=== PATIENT | male | born 1950 | race Caucasian/White ===

== ENCOUNTER 2016-05-22 17:29 | Emergency (ER) | payer MEDICARE, OTHER ==
[~2016-05-22] VITALS: Ht 172.7 cm; Wt 74.8 kg
[2016-05-22 18:30] LABS: Basophils # (auto) 0 uL; Basophils % (auto) 0.5 % (0.0-2.0); Eosinophils # (auto) 0.3 uL; Eosinophils % (auto) 3.1 % (0.0-7.0); Hematocrit 45.9 % (41.0-53.0); Lymphocytes # (auto) 2.5 uL; Lymphocytes % (auto) 29.3 % (10.0-50.0); Mean Corpuscular Hemoglobin 29.4 pg (28.0-32.0); Mean Corpuscular Hgb Conc. 32.8 g/dL (32.0-36.0); Mean Corpuscular Volume 89.8 fL (80.0-100.0); Mean Platelet Volume 7.4 fL (7.4-10.4); Monocytes # (auto) 0.7 uL; Monocytes % (auto) 8.5 % (0.0-12.0); Neutrophils # (auto) 4.9 uL; Neutrophils % (auto) 58.6 % (37.0-80.0); Platelet Count (auto) 225 10^3/uL (140-450); Red Cell Distribution Width 12.4 % (11.6-16.0); White Blood Cell 8.4 10^3/uL (4.4-10.8)
[2016-05-22 18:50] LABS: Albumin 3.5 g/dL (3.4-5.0); BUN/Creatinine Ratio 15.9; Calcium 8.2 mg/dL (8.5-10.1); Potassium 3.8 mmol/L (3.5-5.1)
[2016-05-22 18:52] LABS: Bilirubin, Total 0.5 mg/dL (0.2-1.0); Total Protein 7.2 g/dL (6.4-8.2)
[2016-05-22] MEDS ORDERED: PHENYTOIN IV DILANTIN 1,000 MG in SODIUM CHL 0.9% 250 ML IV ONE (19:00)
[2016-05-22] MEDS ORDERED: MANNITOL 20% SOLN 100 gm/500ml 250 ML IV ONE (19:00)
[2016-05-22] MEDS ORDERED: DEXAMETHASONE SOD PHOS 10MG/1ML VIAL INJ IV ONE (19:00)
[2016-05-22] MEDS ORDERED: MANNITOL FTV 25% 12.5 GM/50 ML 0 ML IV ONE (19:36)
[2016-05-22] MEDS ORDERED: PHENYTOIN SODIUM 50 MG/ML 5ML INJ VIAL IV ONE (19:50)
[2016-05-22] MEDS ORDERED: LORazepam 2MG/ML-1ML VIAL IV ONE (21:45)
[2016-05-22 22:56] VITALS: BP 145/58
== END 2016-05-22 20:37 | disposition short-term general hospital (02) ==
LOC: ER 17:36
DX: I63.9 Cerebral infarction, unspecified (principal); G40.909 Epilepsy, unspecified, not intractable, without status epilepticus; E78.5 Hyperlipidemia, unspecified; I10 Essential (primary) hypertension; Z95.1 Presence of aortocoronary bypass graft; Z86.73 Personal history of transient ischemic attack (TIA), and cerebral infarction without residual deficits
CPT/HCPCS: 36415; 70450; 71010; 80053; 83930; 85025; 85049; 93005; 96365; 96366; 96368; 96375; 99285; J1100; J1165; J2060; J7050

== ENCOUNTER 2023-06-25 09:59 | Day surgery (SDC) | payer MEDICARE, OTHER ==
[2023-06-23 10:21] LABS: Basophils # (auto) 0.1 10 ^3/uL (0-0.2); Basophils % (auto) 1.2 % (0.0-2.0); Eosinophils # (auto) 0.3 10 ^3/uL (0-0.8); Eosinophils % (auto) 3.5 % (0.0-7.0); Hematocrit 41.4 % (41.0-53.0); Lymphocytes # (auto) 1.7 10 ^3/uL (0.4-5.4); Lymphocytes % (auto) 18.3 % (10.0-50.0); Mean Corpuscular Hemoglobin 30.4 pg (28.0-32.0); Mean Corpuscular Hgb Conc. 33.7 g/dL (32.0-36.0); Mean Corpuscular Volume 90.1 fL (80.0-100.0); Monocytes # (auto) 0.8 10 ^3/uL (0-1.3); Monocytes % (auto) 8.4 % (0.0-12.0); Neutrophils # (auto) 6.5 10 ^3/uL (1.6-8.6); Neutrophils % (auto) 68.6 % (37.0-80.0); Nucleated Red Blood Cells % 0.1 %; Red Cell Distribution Width 13.1 % (11.8-14.3); White Blood Cell 9.4 10^3/uL (4.4-10.8)
[2023-06-23 10:44] LABS: Urine Bacteria NONE SEEN /hpf (None Seen); Urine Blood Negative /uL (Negative); Urine Clarity Clear (Clear); Urine Color Yellow (Yellow); Urine Protein, UAD Negative (Negative); Urine Specific Gravity 1.025 (1.001-1.035); Urine Urobilinogen Normal (Negative); Urine WBC <1 /hpf (0 - 3)
[2023-06-23 10:47] LABS: INR 0.96 (0.9-1.15); Partial Thromboplastin Time 26.2 SEC (24.5-34.5); Prothrombin Time 10.1 sec (9.3-11.8)
[2023-06-23 11:12] LABS: Alanine Aminotransferase 22 U/L (7-40); Albumin 4.3 g/dL (3.2-4.8); Alkaline Phosphatase 79 U/L (46-116); Anion Gap 5 (5-15); Aspartate Aminotransferase 18 U/L (13-40); BUN/Creatinine Ratio 14.7 (10.0-20.0); Bilirubin, Total 0.6 mg/dL (0.2-1.0); Blood Urea Nitrogen 20 mg/dL (9-23); Calcium 9.3 mg/dL (8.5-10.1); Carbon Dioxide 30 mmol/L (20-30); Chloride 106 mmol/L (98-107); Glucose 85 mg/dL (74-106); Potassium 4.5 mmol/L (3.5-5.1); Sodium 141 mmol/L (136-145); Total Protein 6.7 g/dL (5.7-8.2)
[~2023-06-25] VITALS: Ht 172.7 cm; Wt 68.0 kg
[~2023-06-25 09:59] MED LIST: AMLO1TAB23 PO; ASPI81CH59 PO; ATOR20TA50 PO; CLOP75TA28 PO; CYAN-17 PO; LAMO200T34 PO; LISI20TA56 PO; METO-159 PO; OMEP-434 PO; RANO500T3 PO
[2023-06-25] MEDS ORDERED: PROPOFOL 10 MG/ML 20 ML IV ONE (12:07)
[2023-06-25 12:16] VITALS: TEMP 98; O2SAT 100; O2SAT 99
[2023-06-25 12:52] VITALS: BP 135/81; PULSE 60; RESP 11; O2SAT 97
== END 2023-06-25 13:02 | disposition home or self-care (01) ==
LOC: GI 09:59
PROVIDERS: ATTEND Internal Medicine Gastroenterology
DX: R10.13 Epigastric pain (principal); K29.50 Unspecified chronic gastritis without bleeding; E78.5 Hyperlipidemia, unspecified; I10 Essential (primary) hypertension; R56.9 Unspecified convulsions; Z98.890 Other specified postprocedural states; Z86.73 Personal history of transient ischemic attack (TIA), and cerebral infarction without residual deficits
CPT/HCPCS: 36415; 43239; 80053; 81001; 85025; 85610; 85730; 88305; 88312; 88342; J2704; J7030

== ENCOUNTER 2024-11-23 10:49 | Inpatient (IN) | payer OTHER, MEDICARE ==
[~2024-11-23] VITALS: Ht 172.7 cm; Wt 68.6 kg
--- NOTE | 2024-11-23 11:09 | ECG ---
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
--- NOTE | 2024-11-23 11:10 | ED.PDOC ---
HPI Comments HPI: 74 y/o M, with PMHx of CVA, HTN, HLD, and seizures presents to the ED for CC of dizziness. Patient states, he has been experiencing dizziness with associated symptoms of substernal non-radiating chest onset, today (11/23/24). Patient reports, that he has chronic dizziness d/t medications however, endorses symptoms worsening today (11/23/24). Per patient's ex-, patient took only his morning medications prior to arriving to the ED. Patient denies shortness of breath, cough, headache, nausea, or vomiting. No other associated symptoms or modifying factors present at this time. Past Medical history: CVA, HTN, HLD, SEIZURES, tremors Past Surgical history: LEFT ARTERIAL APPENDAGE watchman procedure, cholecystecto my, pacemaker, CABG Medications: Aspirin, Plavix, metoprolol, Social History: Denies smoking, ETOH, and drug use. Allergies: NKA HPI: Poor Historian. REVIEW OF SYSTEMS: CONSTITUTIONAL: Denies acute: fever, diaphoresis, chills, HEAD: Denies acute: headache, photophobia Eyes: Denies acute: Double vision, vision loss, eye pain, eye discharge. EARS: Denies acute: tinnitus, hearing loss, ear discharge, ear pain, THROAT: Denies acute: sore throat, swelling, difficulty swallowing , pain with swallowing, change in voice. NECK: Denies acute: neck pain, neck swelling, stiff neck. HEART: Denies acute : palpitations, LUNGS: Denies acute: SOB, wheezing, cough, hemoptysis ABDOMEN: Denies acute: abdominal pain, Nausea, Vomiting, diarrhea, melena , hematemesis, hematochezia SKIN: Denies acute: rash, redness, lesions, itchiness. EXTREMITIES: Denies acute: calf pain, numbness, tingling, weakness, denies pain in extremity. Denies acute: Low back pain. Neuro: Denies acute: focal neurological deficit, motor or sensory focal neurological deficit, tremors, seizure like activity, confusion, change in mental status, loss of bowel or bladder function, cauda equina like symptoms. : Denies acute: dysuria, hematuria, flank pain, increase in urinary frequency. PSYCH: Denies acute: hallucination, suicidal ideation, homicidal ideation. PHYSICAL EXAM: General: -----mild---acute distress, awake and alert. Head: normocephalic, atraumatic. Neck: supple, trachea is midline, no swelling. Throat: Normal phonation. Eyes:, no erythema, no purulent discharge, no proptosis, no icterus. Heart: regular rate, regular rhythm, no significant murmur appreciated. Lungs: no apparent respiratory distress, Able to speak in full sentences. No wheezing, no rhonchi, no crackles. No stridors Clear to auscultation bilaterally. Abdomen: non tender to palpation, non distended, soft, no guarding, no rebound, + bowel sounds. Neuro: Awake, Alert, oriented to name, self, situation, follows commands, resting tremors GCS=15. Speech is normal. Skin: no petechia, no purpura, no cyanosis, non-pale, not jaundice. Lower extremities: --no - Pitting edema no deformity, no focal swelling, no calf TTP. Makes eye contact. moves all four extremities. Face: no apparent facial droop. Unsteady gait when he stands up. Stroke: No pronator drift. ED COURSE: DISCLAIMER: This medical document was created using an electronic medical record system with voice recognition software and computerized dictation system. Although this document has been carefully reviewed, there might still be some phonetic and typographical errors. Occasional wrong-word or "sound-alike" substitutions may have occurred due to the inherent limitations of voice recognition software. These areas are purely typographical due to imperfections of the software programs and do not reflect any compromise in the patient's medical care. Please read the chart carefully and recognize, using context, where these substitutions have occurred. Time Seen by MD: 11:04 Primary Care Provider: UNKNOWN Reviewed Notes: Nurses Notes, Medications, Allergies Allergies: Coded Allergies: NO KNOWN ALLERGIES (Unverified , 05/22/16) Home Meds Reported Medications Tramadol HCl (Tramadol HCl) 50 Mg Tab, 50 MG PO DAILY, TAB 11/23/24 Pantoprazole Sodium (PANTOPRAZOLE SODIUM) 40 Mg Inj, 40 MG PO DAILY@BREAKFAST, INJ 11/23/24 Lamotrigine (Lamotrigine) 25 Mg Tab, 400 MG PO BID, TAB 11/23/24 Dronedarone Hydrochloride (Multaq) 400 Mg Tab, 200 MG PO BID 11/23/24 Metoprolol Succinate (Metoprolol Succinate Er) 50 Mg Tab, 1 TAB PO TID 11/23/24 Clonidine Hydrochloride (Clonidine Hcl) 0.1 Mg Tab, 1 TAB PO TID 11/23/24 Cyanocobalamin (B12) 1,000 Mcg Cap, 1000 MCG PO DAILY, CAP 06/23/23 Aspirin (Aspirin Low Dose) 81 Mg Chw, 81 MG PO DAILY, TAB.CHEW 06/23/23 Atorvastatin Calcium (ATORVASTATIN CALCIUM) 20 Mg Tab, 20 MG PO DAILY, TAB 06/23/23 Omeprazole Magnesium (Omeprazole) 20 Mg Tab, 20 MG PO DAILY, TAB 06/23/23 Clopidogrel Bisulfate (Plavix) 75 Mg Tab, 75 MG PO DAILY, TAB 06/23/23 Ranolazine (Ranolazine ER) 500 Mg Tab, 500 MG PO BID, TAB 06/23/23 Amlodipine Besylate (Amlodipine Besylate) 10 Mg Tab, 10 MG PO DAILY, TAB 06/23/23 Discontinued Reported Medications Metoprolol Tartrate (Metoprolol Tartrate) 100 Mg Tab, 100 MG PO BID, TAB 06/23/23 Lamotrigine (Lamotrigine) 200 Mg Tab, 200 MG PO BID, TAB 06/23/23 Lisinopril (Lisinopril) 20 Mg Tab, 20 MG PO BID, TAB 06/23/23 Information Source: Patient, Spouse Mode of Arrival: Wheelchair Severity: Moderate Timing: Days Duration: Since onset Location: Substernal Radiation: No Radiation Onset: At Rest Cardiac Risk Factors: Hyperlipidemia, HTN PE Risk Factors: None History of: None Modifying Factors: Nothing Associated Signs and Symptoms: None EKG EKG : Pulse Rate (adult): 97 Erick: Normal Cardiac Rhythm: Paced Block: None Hypertrophy: None ST: Normal Was a procedure done? Was a procedure done?: No CP Differential Dx Differential Diagnosis: Other (As far as generalized weakness: Anemia, CVA, dehydration, dysrhythmia, electrolyte imbalance, encephalopathy, Guillain-[place], hypoglycemia, hypotension, hypovolemia, labeled with HIDA some many years disease, myasthenia gravis, PA, pulmonary embolus, renal failure, respiratory failure, TIA, VPI, vertigo central, vertigo peripheral, vestibular neuronitis), N/A Differential Diagnosis: HTN Essential, HTN Accelerated Differential Diagnosis: Angina, Chest Wall Pain, Costochondritis, Other (Ddx include but not limitied to gastritis, musculoskeletal pain, radiculopathy, atypical chest pain, dissection, aneurysm, ACS, unstable angina, hiatal hernia, GERD, anxiety, costochondritis, PE, pneumothroax, neoplasm, cardiac ischemia, drug abuse, anemia.) X-Ray, Labs, Meds, VS Vital Signs Date Time Temp Pulse Resp B/P (MAP) Pulse Ox O2 Delivery O2 Flow Rate FiO2 11/23/24 12:57 97.5 55 16 171/97 (121) 96 97.5 11/23/24 11:35 70 20 98 Room Air* 0 21 11/23/24 11:10 97 11/23/24 11:06 97 11/23/24 10:58 97.5 60 18 143/80 (101) 93 97.5 Lab Test 11/23/24 13:02 11/23/24 11:46 11/23/24 11:37 Range/Units Troponin I High Sensitivity 4 4 </=54 ng/L Urine Color Yellow Yellow Urine Clarity Clear Clear Urine pH 6.5 5.0-9.0 Urine Specific [place] 1.021 1.001-1.035 Urine Protein Trace H Negative Urine Ketones Negative Negative Urine Blood Negative Negative /uL Urine Nitrite Negative Negative Urine Bilirubin Negative Negative Urine Urobilinogen Normal Negative mg/dL Urine Leukocyte Esterase Negative Negative /uL Urine RBC 1 0 - 3 /hpf Urine Microscopic WBC 1 0-3 /HPF Urine Squamous Epithelial Cells None seen <5 /hpf Urine Bacteria None seen None Seen /hpf Urine Glucose Normal Normal mg/dL White Blood Count 6.3 4.4-10.8 10^3/uL Red Blood Count 4.70 4.5-5.90 10^6/uL Hemoglobin 13.8 13.5-17.5 g/dL Hematocrit 41.0 41.0-53.0 % Mean Corpuscular Volume 87.3 80.0-100.0 fL Mean Corpuscular Hemoglobin 29.3 28.0-32.0 pg Mean Corpuscular Hemoglobin Concent 33.6 32.0-36.0 g/dL Red Cell Distribution Width 13.7 11.8-14.3 % Platelet Count 222 140-450 10^3/uL Mean Platelet Volume 6.8 L 6.9-10.8 fL Neutrophils (%) (Auto) 71.6 37.0-80.0 % Lymphocytes (%) (Auto) 15.5 10.0-50.0 % Monocytes (%) (Auto) 7.8 0.0-12.0 % Eosinophils (%) (Auto) 4.1 0.0-7.0 % Basophils (%) (Auto) 1.0 0.0-2.0 % Neutrophils # (Auto) 4.5 1.6-8.6 10 ^3/uL Lymphocytes # (Auto) 1.0 0.4-5.4 10 ^3/uL Monocytes # (Auto) 0.5 0-1.3 10 ^3/uL Eosinophils # (Auto) 0.3 0-0.8 10 ^3/uL Basophils # (Auto) 0.1 0-0.2 10 ^3/uL Nucleated Red Blood Cells 0.1 % Sodium Level 139 136-145 mmol/L Potassium Level 4.1 3.5-5.1 mmol/L Chloride Level 106 98-107 mmol/L Carbon Dioxide Level 24 20-31 mmol/L Anion Gap 9 5-15 Blood Urea Nitrogen 20 9-23 mg/dL Creatinine 1.53 H 0.700-1.30 mg/dL Glomerular Filtration Rate Calc 47 >90 mL/min BUN/Creatinine Ratio 13.1 10.0-20.0 Serum Glucose 115 H 74-106 mg/dL Lactic Acid Level 1.2 0.4-2.0 mmol/L Calcium Level 9.5 8.7-10.4 mg/dL Total Bilirubin 0.6 0.2-1.0 mg/dL Aspartate Amino Transferase (AST) 14 13-40 U/L Alanine Aminotransferase (ALT) 10 7-40 U/L Alkaline Phosphatase 91 46-116 U/L B-Type Natriuretic Peptide 433.54 0-100 pg/mL Total Protein 7.0 5.7-8.2 g/dL Albumin 4.5 3.2-4.8 g/dL [facility] [id number] [place] [id number] Ph: [phone] DIAGNOSTIC IMAGING Diagnostic Imaging Report : [id number] Signed PATIENT: ANDREW SAEED ACCT: [id number] UNIT: [id number] : 1950 LOC: ER ROOM / BED: / AGE / SEX: 74 / M ADM STATUS: REG ER SERVICE 1103 ORDERING PHYSICIAN: SARAH BETH HYLTON DO PROCEDURE(s): CXRP - CHEST PORTABLE REASON: cp/dizzy ORDER NUMBER(s): [id number], ACCESSION NUMBER(s): [id number] INDICATION: cp/dizzy TECHNIQUE: Frontal view of the chest. COMPARISON: None FINDINGS: Left pacemaker. The heart and mediastinal contours are grossly unremarkable. There is no evidence of pleural disease. Bibasilar atelectasis. The bony structures of the chest are intact without fracture. IMPRESSION: 1. Bibasilar atelectasis ATED BY: FELIPE BESS MD DICTATED DATE/TIME: 11/23/24 1136 SIGNED BY: FELIPE BESS MD SIGNED DATE/TIME: 11/23/24 1136 CC: Time of 1ST Reevaluation: 11:34 Reevaluation 1ST: Unchanged Patient Education/Counseling: Diagnosis, Treatment Family Education/Counseling: Diagnosis, Treatment Comments MDM: patient presented with the above HPI.---generalized weakness dizziness chest pain---workup was initiated. patient was found with the above mentioned diagnosis. the following medications were ordered: please refer to order lists of meds and tests obtained by myself Dr. Hylton. Patient ED course and VS have been stabilized. Patient has been reassessed in the ED and remained in a stable condition. Pertinent incidental findings were discussed with the patient and/or family. Patient/family voices understanding and is agreeable with plan. Patient has been observed in the ED adequate length of time to insure improvement/stability. Escalation of care considered: Consideration of escalation to observation or admission Patient was ADMITTED to the medicine team for further evaluation and treatment of their presentation. All the reports of any imaging studies that were ordered by myself were reviewed by myself. Departure 1 Departure Time of Disposition: 11:09 Impression: Primary Impression: Chest pain Additional Impressions: Unsteady gait Dizziness Disposition: 09 ADMITTED INPATIENT Admit to: Tele Condition: Guarded Discharged With: Self Critical Care Note Critical Care Time?: Yes (45 min-critical care time only) Heart Score Heart Score: Heart Score Response (Comments) Value History Moderate Suspicious 1 EKG N/A 0 Age >65 2 Risk Factors 1 or 2 risk factors 1 Troponin Normal limit 0 Total 4 I personally scribed for SARAH BETH HYLTON DO (DVFARMI) on 11/23/24 at 11:10. Electronically submitted by Thelma Greenfiedl ([email or web address]). I personally scribed for SARAH BETH HYLTON DO (DVFARMI) on 11/23/24 at 11:16. Electronically submitted by Thelma Greenfield ([email or web address]). I personally scribed for SARAH BETH HYLTON DO (DVFARMI) on 11/23/24 at 11:59. Electronically submitted by Thelma Greenfield ([email or web address]). I personally scribed for SARAH BETH HYLTON DO (DVFARMI) on 11/23/24 at 12:00. Electronically submitted by Thelma Greenfield ([email or web address]). SARAH BETH HYLTON DO Nov 23, 2024 11:10
[2024-11-23] MEDS: SODIUM CHLORIDE 0.9% 1,000 ML IV ONE (11:24)
[2024-11-23 11:35] VITALS: PULSE 70; RESP 20; O2SAT 98
--- NOTE | 2024-11-23 11:38 | DVH ---
INDICATION: cp/dizzy TECHNIQUE: Frontal view of the chest. COMPARISON: None FINDINGS: Left pacemaker. The heart and mediastinal contours are grossly unremarkable. There is no evidence of pleural disease. Bibasilar atelectasis. The bony structures of the chest are intact without fract ure. IMPRESSION: 1. Bibasilar atelectasis
[2024-11-23 12:09] LABS: Hematocrit 41.0 % (41.0-53.0); Hemoglobin 13.8 g/dL (13.5-17.5); Mean Corpuscular Hemoglobin 29.3 pg (28.0-32.0); Mean Corpuscular Volume 87.3 fL (80.0-100.0); Nucleated Red Blood Cells % 0.1 %
[2024-11-23 12:18] LABS: Alanine Aminotransferase 10 U/L (7-40); Albumin 4.5 g/dL (3.2-4.8); Alkaline Phosphatase 91 U/L (46-116); Anion Gap 9 (5-15); BUN/Creatinine Ratio 13.1 (10.0-20.0); Blood Urea Nitrogen 20 mg/dL (9-23); Calcium 9.5 mg/dL (8.7-10.4); Carbon Dioxide 24 mmol/L (20-31); Chloride 106 mmol/L (98-107); Potassium 4.1 mmol/L (3.5-5.1); Sodium 139 mmol/L (136-145); Total Protein 7.0 g/dL (5.7-8.2)
[2024-11-23 12:19] LABS: Bilirubin, Total 0.6 mg/dL (0.2-1.0); Glucose 115 mg/dL (74-106)
[2024-11-23 12:38] LABS: Urine Protein, UAD TRACE (Negative)
[2024-11-23] MEDS ORDERED: CLON0.1T PO (15:06)
[2024-11-23] MEDS ORDERED: ACETAMINOPHEN 325 MG TAB PO PRN (15:15)
[2024-11-23] MEDS ORDERED: DOCUSATE SOD 100 MG CAP PO PRN (15:15)
--- NOTE | 2024-11-23 15:37 | DVHHP2 ---
History of Present Illness Reason for Visit: Dizziness History of Present Illness Benito Engle is a 74-year-old male with past medical history of CVA, hypertension, hyperlipidemia, and seizures, who came to the hospital for dizziness and shaking. Patient states he usually has dizziness and tremors due to his medications, but it worsened prompting him to come to the hospital. He also complains of intermittent chest pain. Patient lives alone, is forgetful and a poor historian. Dis ex- helps him with getting to his doctor appointments and with his medications. She states he does have periods of dizziness and tremors. Thursday his dizziness was bad, then Thursday he was fine. Today he was not feeling well and she was taking him to his primary care provider for a check up when he told her he felt too bad and to take him to the hospital. 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 Past Surgical History: Cholecystectomy, CABG Smoke: No ALCOHOL: none Drugs: None Lives: Alone Domestic Violence: Neg Review of Systems Constitutional: No: Fever, Chills, Sweats, Weakness, Malaise, Other Eyes: No: Pain, Vision change, Conjunctivae inflammation, Eyelid inflammation, Other, Redness ENT: No: Ear pain, Ear discharge, Nose pain, Nose discharge, Nose congestion, Mouth pain, Mouth swelling, Throat pain, Throat swelling, Other Respiratory: No: Cough, Dry, Shortness of breath, SOB with excertion, Wheezing, Hemoptysis, Pleuritic Pain, Sputum, Wheezing, Other Cardiovascular: No: Chest Pain, Palpitations, Orthopnea, Paroxysmal Noc. Dyspnea, Edema, Lt Headedness, Other Gastrointestinal: No: Nausea, Vomiting, Abdominal Pain, Diarrhea, Constipation, Melena, Hematochezia, Other Genitourinary: No Dysuria, No Frequency, No Incontinence, No Hematuria, No Retention, No Other Musculoskeletal: No: other, neck pain, shoulder pain, arm pain, back pain, hand pain, leg pain, foot pain Skin: No: Rash, Lesions, Jaundice, Bruising, Other Neurological: Weakness, Numbness, Incoordination; No: Change in speech, Confusion, Seizures, Other Allergies: Coded Allergies: NO KNOWN ALLERGIES (Unverified , 05/22/16) Medications Current Medications Medications Dose Ordered Sig/Iris Route Start Time Stop Time Status Last Admin Dose Admin Acetaminophen/ Hydrocodone Bitart 1 tab Q4HP PRN PO 11/23/24 15:15 UNV Ondansetron HCl 4 mg Q4HP PRN IV 11/23/24 15:15 UNV Docusate Sodium 100 mg BIDPRN PRN PO 11/23/24 15:15 UNV Acetaminophen 650 mg Q6HP PRN PO 11/23/24 15:15 UNV Atorvastatin Calcium 20 mg DAILY PO 11/24/24 10:00 UNV Clopidogrel Bisulfate 75 mg DAILY PO 11/24/24 10:00 UNV Ranolazine 500 mg BID PO 11/23/24 22:00 UNV Patient Own Medication 81 mg DAILY PO 11/24/24 10:00 UNV Patient Own Medication 200 mg BID PO 11/23/24 22:00 UNV Patient Own Medication 100 mg BID PO 11/23/24 22:00 UNV Patient Own Medication 20 mg DAILY PO 11/24/24 10:00 UNV Clonidine HCl 0.1 mg TID PO 11/23/24 22:00 UNV Exam Vital Signs Vital Signs Date Time Temp Pulse Resp B/P (MAP) Pulse Ox O2 Delivery O2 Flow Rate FiO2 11/23/24 12:57 97.5 55 16 171/97 (121) 96 97.5 11/23/24 11:35 Room Air* 0 21 General Appearance: Alert, Cooperative, Other (Oriented x 2) HEENT: Atraumatic, PERRLA, Mucous membr. moist/pink Respiratory: Clear to auscultation, Normal air movement Cardiovascular: Regular rate, Normal S1, Normal S2, No murmurs, Other (hyp ertensive) Abdominal: Normal bowel sounds, Soft, No tenderness, No hepatospenomegaly Extremities: No clubbing, No cyanosis, No edema, Normal pulses, No tenderness/swelling Skin: No rashes, No breakdown Neuro: Normal speech, Other (unsteady gait, shuffles) Psych/Mental Status: Other (forgetful) Labs/Xrays Labs Test 11/23/24 13:02 11/23/24 11:46 11/23/24 11:37 Range/Units Troponin I High Sensitivity 4 </=54 ng/L Urine Color Yellow Yellow Urine Clarity Clear Clear Urine pH 6.5 5.0-9.0 Urine Specific [place] 1.021 1.001-1.035 Urine Protein Trace H Negative Urine Ketones Negative Negative Urine Blood Negative Negative /uL Urine Nitrite Negative Negative Urine Bilirubin Negative Negative Urine Urobilinogen Normal Negative mg/dL Urine Leukocyte Esterase Negative Negative /uL Urine RBC 1 0 - 3 /hpf Urine Microscopic WBC 1 0-3 /HPF Urine Squamous Epithelial Cells None seen <5 /hpf Urine Bacteria None seen None Seen /hpf Urine Glucose Normal Normal mg/dL White Blood Count 6.3 4.4-10.8 10^3/uL Red Blood Count 4.70 4.5-5.90 10^6/uL Hemoglobin 13.8 13.5-17.5 g/dL Hematocrit 41.0 41.0-53.0 % Mean Corpuscular Volume 87.3 80.0-100.0 fL Mean Corpuscular Hemoglobin 29.3 28.0-32.0 pg Mean Corpuscular Hemoglobin Concent 33.6 32.0-36.0 g/dL Red Cell Distribution Width 13.7 11.8-14.3 % Platelet Count 222 140-450 10^3/uL Mean Platelet Volume 6.8 L 6.9-10.8 fL Neutrophils (%) (Auto) 71.6 37.0-80.0 % Lymphocytes (%) (Auto) 15.5 10.0-50.0 % Monocytes (%) (Auto) 7.8 0.0-12.0 % Eosinophils (%) (Auto) 4.1 0.0-7.0 % Basophils (%) (Auto) 1.0 0.0-2.0 % Neutrophils # (Auto) 4.5 1.6-8.6 10 ^3/uL Lymphocytes # (Auto) 1.0 0.4-5.4 10 ^3/uL Monocytes # (Auto) 0.5 0-1.3 10 ^3/uL Eosinophils # (Auto) 0.3 0-0.8 10 ^3/uL Basophils # (Auto) 0.1 0-0.2 10 ^3/uL Nucleated Red Blood Cells 0.1 % Sodium Level 139 136-145 mmol/L Potassium Level 4.1 3.5-5.1 mmol/L Chloride Level 106 98-107 mmol/L Carbon Dioxide Level 24 20-31 mmol/L Anion Gap 9 5-15 Blood Urea Nitrogen 20 9-23 mg/dL Creatinine 1.53 H 0.700-1.30 mg/dL Glomerular Filtration Rate Calc 47 >90 mL/min BUN/Creatinine Ratio 13.1 10.0-20.0 Serum Glucose 115 H 74-106 mg/dL Lactic Acid Level 1.2 0.4-2.0 mmol/L Calcium Level 9.5 8.7-10.4 mg/dL Total Bilirubin 0.6 0.2-1.0 mg/dL Aspartate Amino Transferase (AST) 14 13-40 U/L Alanine Aminotransferase (ALT) 10 7-40 U/L Alkaline Phosphatase 91 46-116 U/L B-Type Natriuretic Peptide 433.54 0-100 pg/mL Total Protein 7.0 5.7-8.2 g/dL Albumin 4.5 3.2-4.8 g/dL TECHNIQUE: Frontal view of the chest. FINDINGS: Left pacemaker. The heart and mediastinal contours are grossly unremarkable. There is no evidence of pleural disease. Bibasilar atelectasis. The bony structures of the chest are intact without fracture. IMPRESSION: 1. Bibasilar atelectasis SEPSIS Sepsis Screen Date sepsis recognized/suspect: Nov 23, 2024 Time Sepsis recognized/suspect: 1058 Recent Procedure: No On Antibiotic Therapy: No Respiratory Rate >20: No Heart Rate >90: No Temp<36 C (96.8 F) or >38.3 C: No SBP <90 or MAP <65 mmHG: No New Acute Mental Status Change: No Is the patient on CPAP, BIPAP,: No Physician Orders Electrocardigram (11/23/24 11:54) Electrocardigram (11/23/24 13:54) Carpet Finishing Supervisor (11/23/24 ) Orthostatic Vital Signs (11/23/24 ) Chest Portable (11/23/24 11:03) Troponin-I Hs (11/23/24 14:03) Admit (11/23/24 15:02) Code Status (11/23/24 15:02) Hydrocodone-Acet 5/325mg Tab ([place] 5/32 (11/23/24 15:15) Ondansetron Hcl (Zofran) (11/23/24 15:15) Docusate Sodium Capsule (Colace Capsule) (11/23/24 15:15) Complete Blood Count (11/24/24 04:00) Comprehensive Metabolic Panel (11/24/24 04:00) Cardiac Diet-2gna,Lofat,Lochol (11/23/24 Dinner) Condition: Serious (11/23/24 15:02) Acetaminophen Tablet (Tylenol Tablet) (11/23/24 15:15) Atorvastatin (Lipitor) (11/24/24 10:00) Clopidogrel Bisulfate (Plavix) (11/24/24 10:00) Ranolazine (Ranexa Er) (11/23/24 22:00) (Nf) Aspirin (Aspirin Low Dose) (11/24/24 10:00) (Nf) Lamotrigine (11/23/24 22:00) (Nf) Metoprolol Tartrate (11/23/24 22:00) (Nf) Omeprazole Magnesium (Omeprazole) (11/24/24 10:00) Clonidine Hcl Tablet (Catapres Tablet) (11/23/24 22:00) * Neurology Consult (11/23/24 15:06) Vital Signs Date Time Temp Pulse Resp B/P (MAP) Pulse Ox O2 Delivery O2 Flow Rate FiO2 11/23/24 12:57 97.5 55 16 171/97 (121) 96 97.5 11/23/24 11:35 70 20 98 Room Air* 0 21 11/23/24 11:10 97 11/23/24 11:06 97 11/23/24 10:58 97.5 60 18 143/80 (101) 93 97.5 Laboratory Tests Test 11/23/24 11:37 Lactic Acid Level 1.2 mmol/L (0.4-2.0) White Blood Count 6.3 10^3/uL (4.4-10.8) Medications Medications Dose Ordered Sig/Iris Route Start Time Stop Time Status Last Admin Dose Admin Sodium Chloride 1,000 ml @ 1,000 mls/hr Q1H ONCE IV 11/23/24 11:15 11/23/24 12:14 DC 11/23/24 11:24 1,000 MLS/HR Assessment/Plan Assessment/Plan Assessment: Autonomic disorder, Hypertension, Hyperlipidemia, Seizures, Plan: Admit to Med-Surg, Neurology consult, Cardiology consult, Physical therapy, Home medications reconciled, Plan discussed with: Patient My Orders Orders - ERLIN DASH Procedure Category Date Status Time Admit ADMIT 11/23/24 Transmitted 15:02 Code Status CODE 11/23/24 Transmitted 15:02 Hydrocodone-Acet PHA 11/23/24 Logged 5/325mg Tab ([place] 15:15 Ondansetron Hcl PHA 11/23/24 Logged (Zofran) 15:15 Docusate Sodium PHA 11/23/24 Logged Capsule (Colace 15:15 Complete Blood Count LAB 11/24/24 Verified 04:00 Comprehensive LAB 11/24/24 Verified Metabolic Panel 04:00 Cardiac DIET 11/23/24 Transmitted Diet-2gna,Lofat,Lochol Dinner Condition: Serious LINDEN 11/23/24 In Process 15:02 Acetaminophen Tablet PHA 11/23/24 Logged (Tylenol Tablet) 15:15 Atorvastatin (Lipitor) PHA 11/24/24 Logged 10:00 Clopidogrel Bisulfate PHA 11/24/24 Logged (Plavix) 10:00 Ranolazine (Ranexa Er) PHA 11/23/24 Logged 22:00 (Nf) Aspirin (Aspirin PHA 11/24/24 Logged Low Dose) 10:00 (Nf) Lamotrigine PHA 11/23/24 Logged 22:00 (Nf) Metoprolol PHA 11/23/24 Logged Tartrate 22:00 (Nf) Omeprazole PHA 11/24/24 Logged Magnesium (Omeprazole) 10:00 Clonidine Hcl Tablet PHA 11/23/24 Logged (Catapres Tablet) 22:00 * Neurology Consult CONS 11/23/24 Transmitted 15:06 Date of Service: Nov 23, 2024 Billing Provider: ERLIN DASH Common Visit Codes: [id number] INP/OBS CARE (MOD) ERLIN DASH Nov 23, 2024 15:37
[2024-11-23] MEDS ORDERED: METO-289 PO (16:10)
[2024-11-23] MEDS ORDERED: DRON400T PO (16:10)
[2024-11-23] MEDS ORDERED: LAMO25TA27 PO (16:14)
[2024-11-23 17:20] VITALS: BP 186/104; PULSE 60; RESP 20; TEMP 97.5; O2SAT 99
[2024-11-23 17:40] VITALS: BP 157/99; PULSE 59; RESP 18
[2024-11-23] MEDS ORDERED: PANT1INJ3 PO (17:52)
[2024-11-23] MEDS ORDERED: TRAM-626 PO (17:52)
[2024-11-23 20:00] VITALS: PULSE 60; RESP 16; O2SAT 98
[2024-11-23 21:00] VITALS: BP 147/88; PULSE 60; RESP 16; TEMP 97.4; O2SAT 98
[2024-11-23] MEDS: lamoTRIgine 100 MG TAB PO SCH (21:36)
[2024-11-23] MEDS: RANOLAZINE ER 500 MG TAB PO SCH (21:36)
[2024-11-23] MEDS: METOPROLOL SUCCINATE XL 50 MG TAB PO SCH (21:37)
[2024-11-23] MEDS: DRONEDARONE HCL 400 MG TAB PO SCH (21:41)
[2024-11-23] MEDS ORDERED: lamoTRIgine 100 MG TAB PO SCH (22:00)
--- NOTE | 2024-11-23 22:13 | DVHINCON2 ---
Date of service: Nov 23, 2024 Referring Physician anai Reason for Consultation Autonomic disorder History of Present Illness Mr. Engle is a 74 years old gentleman with a history of hypertension, dyslipidemia, atrial fibrillation status post Watchman procedure, coronary artery disease, SAH, tremor, seizure, he came to the [facility] on 11/23/2024 with a chief company of dizziness. At that time, he is alert, oriented x3, he remembers seeing me previously, but is a very difficult historian, he is self conflicting, I have talked to his nurse, reviewed old chart, including my office note Since the beginning of 2024, he has occasional spells event where everything is moving around him for a few minutes, along with a roller coaster feeling, the problem has been very bad since 11/23 24, he relates the event is triggered by getting up from bed, but not lying down, bending over but not raising the head. He did not have recent head injury In 2013, he had acute left arm weakness, the patient was seen in the local hospital, and he was said to have stroke after MR brain scan, the patient has been on combined aspirin 81 mg daily, Plavix 75 mg daily Lipitor 20 mg daily for many years. He also had recurrent SAH, (see attached report from my office) He also has a seizure disorder, but at that time he is not a good history, he said he had convulsion seizure with the last attack in early 2023, he is on lamotrigine 400 mg in the morning, 100 mg in the afternoon, 400 mg at bedtime (our external medical history confirmed lamotrigine 400 mg b.i.d.) Since the age of 19s, he has tremor in both upper extremity, with a left-sided more affected, the tremor is typically when he is eating, drinking and work with his hands, but not when the hands are resting, his mother and a daughter had/has similar tremors Reports from my office CT head, 05/22/16: 1. Loss of the normal darby-white matter differentiation in the right frontal lobe, left posterior parietal lobe and left occipital lobe with thickening of the cortical margin and underlying edema causing effacement of the sulci. MR head, 12/2019: Small SAH H over left parietal lobe MRI head, 12/29/19: 1. Small subarachnoid blood products suspected over the left parietal cortex posteriorly and possibly the right central sulcus MR brain 12/28/2021: Small SAH CT head, 08/18/2022: SAH of left parietal lobe CT head, comparison: 08/16/2022. 10/20/2022: Essentially unchanged, laminar hyperattenuation in the left parietal lobe similar to most recent prior exam with fullness of the left parietal lobe sulci and hypoattenuation, most likely representing dystrophic calcifications or cortical laminar necrosis sequelae of prior cerebral infarct MRI head, 08/22/22: Up to 4.2 cm localized area of increased FLAIR signal in right superior frontoparietal lobe centrum semiovale likely due to chronic ischemia infarct. CTA head, neck, 08/17/2022: Possible vascular malformation Urinalysis, 11/20/2024: Unremarkable CBC, 07/24/24: Unremarkable BUN/CR, 11/23/2024: 20/1.53 GFR, : 47 CT head, 05/22/2016: 1. Loss of the normal darby-white matter differentiation in the right frontal lobe, left posterior parietal lobe and left occipital lobe with thickening of the cortical margin and underlying edema causing effacement of the sulci. The appearance is highly concerning for a underlying malignancy with vasogenic edema. Ischemia is felt to be unlikely given the appearance and distribution. There is no associated mass effect or midline shift. Recommend obtaining MRI with gadolinium for further characterization. 2. No acute areas of intracranial hemorrhage or obvious acute territorial infarct. 3. Age related atrophy and small vessel ischemic change. Past Medical History Hypertension, dyslipidemia, AFib, stroke, intracranial hemorrhage, tremors, seizure Past Surgical History Watchman procedure, cholecystectomy, pacemaker insertion in [id number], CABG Family History: Cardiovascular disease G8 FATHER Multisensory dizziness G8 MOTHER Family History Hypertension, diabetes, coronary artery disease, heart attack, congestive heart failure, stroke, tremors Social History He smoke, but no history of alcohol or drug abuse Allergies: Coded Allergies: NO KNOWN ALLERGIES (Unverified , 05/22/16) Home Meds Reported Medications Tramadol HCl (Tramadol HCl) 50 Mg Tab, 50 MG PO DAILY, TAB 11/23/24 Pantoprazole Sodium (PANTOPRAZOLE SODIUM) 40 Mg Inj, 40 MG PO DAILY@BREAKFAST, INJ 11/23/24 Lamotrigine (Lamotrigine) 25 Mg Tab, 400 MG PO BID, TAB 11/23/24 Dronedarone Hydrochloride (Multaq) 400 Mg Tab, 200 MG PO BID 11/23/24 Metoprolol Succinate (Metoprolol Succinate Er) 50 Mg Tab, 1 TAB PO TID 11/23/24 Clonidine Hydrochloride (Clonidine Hcl) 0.1 Mg Tab, 1 TAB PO TID 11/23/24 Cyanocobalamin (B12) 1,000 Mcg Cap, 1000 MCG PO DAILY, CAP 06/23/23 Aspirin (Aspirin Low Dose) 81 Mg Chw, 81 MG PO DAILY, TAB.CHEW 06/23/23 Atorvastatin Calcium (ATORVASTATIN CALCIUM) 20 Mg Tab, 20 MG PO DAILY, TAB 06/23/23 Omeprazole Magnesium (Omeprazole) 20 Mg Tab, 20 MG PO DAILY, TAB 06/23/23 Clopidogrel Bisulfate (Plavix) 75 Mg Tab, 75 MG PO DAILY, TAB 06/23/23 Ranolazine (Ranolazine ER) 500 Mg Tab, 500 MG PO BID, TAB 06/23/23 Amlodipine Besylate (Amlodipine Besylate) 10 Mg Tab, 10 MG PO DAILY, TAB 06/23/23 Discontinued Reported Medications Metoprolol Tartrate (Metoprolol Tartrate) 100 Mg Tab, 100 MG PO BID, TAB 06/23/23 Lamotrigine (Lamotrigine) 200 Mg Tab, 200 MG PO BID, TAB 06/23/23 Lisinopril (Lisinopril) 20 Mg Tab, 20 MG PO BID, TAB 06/23/23 Current Medications Current Medications Medications (Trade) Dose Ordered Sig/Iris Route PRN Reason Start Time Stop Time Status Last Admin Acetaminophen/ Hydrocodone Bitart ([place] 5/325MG Tab) 1 tab Q4HP PRN PO MODERATE PAIN (4-6 PAIN SCALE) 11/23/24 15:15 Ondansetron HCl (Zofran) 4 mg Q4HP PRN IV NAUSEA / VOMITING 11/23/24 15:15 Docusate Sodium (Colace Capsule) 100 mg BIDPRN PRN PO FOR CONSTIPATION 11/23/24 15:15 Acetaminophen (Tylenol Tablet) 650 mg Q6HP PRN PO PAIN SCALE 1-3 OR TEMP>100.4 11/23/24 15:15 Atorvastatin Calcium (Lipitor) 20 mg DAILY PO 11/24/24 10:00 Clopidogrel Bisulfate (Plavix) 75 mg DAILY PO 11/24/24 10:00 Ranolazine (Ranexa ER) 500 mg BID PO 11/23/24 22:00 11/23/24 21:36 Aspirin (Ecotrin Enteric Coated Tablet) 81 mg DAILY PO 11/24/24 10:00 Lamotrigine (LaMICtal TABLET) 800 mg BID PO 11/23/24 22:00 11/23/24 16:10 DC Metoprolol Succinate (Toprol Xl) 50 mg TID PO 11/23/24 22:00 11/23/24 21:37 Pantoprazole Sodium (Protonix Tablet) 40 mg DAILY PO 11/24/24 10:00 Clonidine HCl (Catapres Tablet) 0.1 mg TID PO 11/23/24 22:00 11/23/24 21:36 Lamotrigine (LaMICtal TABLET) 400 mg BID PO 11/23/24 22:00 11/23/24 21:36 Dronedarone (MulTAQ) 400 mg BID PO 11/23/24 22:00 Clonidine HCl (Catapres Tablet) 0.1 mg Q6HP PRN PO SBP>160 11/23/24 16:15 Review of Systems As above, the other systems are negative Vital Signs Vital Signs Date Time Temp Pulse Resp B/P (MAP) Pulse Ox O2 Delivery O2 Flow Rate FiO2 11/23/24 21:37 60 147/88 11/23/24 21:00 97.4 16 98 97.4 11/23/24 17:00 Room Air* 0 21 Physical Exam GENERAL EXAM: General: the patient is well developed and nourished. No acute distress. HEENT: Normocephalic, neck is supple, no carotid bruits. No mass. RESPIRATORY: Normal respiratory effort with symmetrical lung expansion. Lungs clear to auscultation. CARDIOVASCULAR: Regular rate and rhythm with no murmurs. S1, S2. ABDOMEN: Soft, nontender, normal bowel sound NEUROLOGICAL: MENTAL STATUS: Awake and alert. Oriented to person, place, time and general circumstances. Poor historian SPEECH, LANGUAGE, HIGHER CORTICAL FUNCTION: no aphasia or dysathria. CRANIAL NERVES: #2: Intact visual fleming to confrontation. The optic discs were sharp. #3,4,6: Pupils are equal, round and reactive. EOMs full and conjugate. No nystagmus. #5: Facial sensation intact in all three divisions bilaterally. Mandibular strength intact. #7: Facial muscles symmetrical and strength intact. #8: Hearing grossly normal to voice. #9,10: Uvula and soft palate rise in the midline. Swallow and voice are normal. #11: Trapezius and sternomastoid strength intact bilaterally. #12: Tongue midline. No fasciculations or atrophy. SENSATION: Sensation to touch and pinprick is normal. MOTOR: Normal tone in the upper and lower extremity. Normal muscle bulk. No fasciculations. Postural tremor in both upper extremities. Muscle strength of the major groups in the upper extremities is 5/5. Muscle strength of the major groups in the lower extremities is 5/5. REFLEXES: Deep tendon reflexes are symmetrical. No pathological reflexes. CEREBELLAR/COORDINATION: Finger to nose is normal bilaterally. GAIT/STATION: deferred. Labs/Diagnostic Data Labs Test 11/23/24 15:28 11/23/24 11:46 11/23/24 11:37 Range/Units Troponin I High Sensitivity 3 L </=54 ng/L Urine Color Yellow Yellow Urine Clarity Clear Clear Urine pH 6.5 5.0-9.0 Urine Specific [place] 1.021 1.001-1.035 Urine Protein Trace H Negative Urine Ketones Negative Negative Urine Blood Negative Negative /uL Urine Nitrite Negative Negative Urine Bilirubin Negative Negative Urine Urobilinogen Normal Negative mg/dL Urine Leukocyte Esterase Negative Negative /uL Urine RBC 1 0 - 3 /hpf Urine Microscopic WBC 1 0-3 /HPF Urine Squamous Epithelial Cells None seen <5 /hpf Urine Bacteria None seen None Seen /hpf Urine Glucose Normal Normal mg/dL White Blood Count 6.3 4.4-10.8 10^3/uL Red Blood Count 4.70 4.5-5.90 10^6/uL Hemoglobin 13.8 13.5-17.5 g/dL Hematocrit 41.0 41.0-53.0 % Mean Corpuscular Volume 87.3 80.0-100.0 fL Mean Corpuscular Hemoglobin 29.3 28.0-32.0 pg Mean Corpuscular Hemoglobin Concent 33.6 32.0-36.0 g/dL Red Cell Distribution Width 13.7 11.8-14.3 % Platelet Count 222 140-450 10^3/uL Mean Platelet Volume 6.8 L 6.9-10.8 fL Neutrophils (%) (Auto) 71.6 37.0-80.0 % Lymphocytes (%) (Auto) 15.5 10.0-50.0 % Monocytes (%) (Auto) 7.8 0.0-12.0 % Eosinophils (%) (Auto) 4.1 0.0-7.0 % Basophils (%) (Auto) 1.0 0.0-2.0 % Neutrophils # (Auto) 4.5 1.6-8.6 10 ^3/uL Lymphocytes # (Auto) 1.0 0.4-5.4 10 ^3/uL Monocytes # (Auto) 0.5 0-1.3 10 ^3/uL Eosinophils # (Auto) 0.3 0-0.8 10 ^3/uL Basophils # (Auto) 0.1 0-0.2 10 ^3/uL Nucleated Red Blood Cells 0.1 % Sodium Level 139 136-145 mmol/L Potassium Level 4.1 3.5-5.1 mmol/L Chloride Level 106 98-107 mmol/L Carbon Dioxide Level 24 20-31 mmol/L Anion Gap 9 5-15 Blood Urea Nitrogen 20 9-23 mg/dL Creatinine 1.53 H 0.700-1.30 mg/dL Glomerular Filtration Rate Calc 47 >90 mL/min BUN/Creatinine Ratio 13.1 10.0-20.0 Serum Glucose 115 H 74-106 mg/dL Lactic Acid Level 1.2 0.4-2.0 mmol/L Calcium Level 9.5 8.7-10.4 mg/dL Total Bilirubin 0.6 0.2-1.0 mg/dL Aspartate Amino Transferase (AST) 14 13-40 U/L Alanine Aminotransferase (ALT) 10 7-40 U/L Alkaline Phosphatase 91 46-116 U/L B-Type Natriuretic Peptide 433.54 0-100 pg/mL Total Protein 7.0 5.7-8.2 g/dL Albumin 4.5 3.2-4.8 g/dL Assessment This is a very difficult consultation, time spent is more than 1 hour. He has the following medical problems Dizziness, Likely benign paroxysmal positional vertigo, Rule out other etiology Chronic stroke Recurrent subarachnoid hemorrhage Atrial fibrillation, status post Watchman procedure Atrial fibrillation status post pacemaker insertion (2023) Reports grand mal seizure Essential tremors Plan/Recommendation Monitoring Supportive treatment Telemetry EEG MR brain scan Lamotrigine 400 mg Bid Aspirin 81 mg daily, Plavix 75 mg daily, Lipitor 20 mg daily Ativan for seizure breakthrough Further address his essential tremor as outpatient More recommendation per clinical course Progress: Poor This medical document was created using an electronic medical record system with [employer] dictation system. Although this document has been carefully reviewed, there may still be some phonetic and typographical errors. These areas are purely typographical due to imperfections of the software programs, and do not reflect any compromise in the patient's medical care. Plan discussed with: Patient, Other MICHAEL CHAPARRO MD Nov 23, 2024 22:13
[2024-11-23] MEDS ORDERED: LORazepam 2MG/ML-1ML VIAL IV PRN ×2 (23:15)
[2024-11-24] VITALS (8 sets, daily range): BP systolic 120–179; BP diastolic 63–111; PULSE 59–70; RESP 16–19; TEMP 97.2–98.4; O2SAT 94–98
[2024-11-24 07:10] LABS: Hematocrit 36.8 % (41.0-53.0); Hemoglobin 12.8 g/dL (13.5-17.5); Mean Corpuscular Hemoglobin 29.7 pg (28.0-32.0); Mean Corpuscular Volume 85.4 fL (80.0-100.0); Nucleated Red Blood Cells % 0.1 %
[2024-11-24 07:21] LABS: Alkaline Phosphatase 83 U/L (46-116); Anion Gap 8 (5-15); Blood Urea Nitrogen 15 mg/dL (9-23); Calcium 9.3 mg/dL (8.7-10.4); Carbon Dioxide 24 mmol/L (20-31); Glucose 85 mg/dL (74-106); Potassium 4.3 mmol/L (3.5-5.1); Sodium 139 mmol/L (136-145); Total Protein 6.4 g/dL (5.7-8.2)
[2024-11-24 07:22] LABS: Albumin 4.1 g/dL (3.2-4.8); BUN/Creatinine Ratio 11.9 (10.0-20.0); Bilirubin, Total 0.6 mg/dL (0.2-1.0)
[2024-11-24 07:23] LABS: Alanine Aminotransferase < 9 U/L (7-40); Chloride 107 mmol/L (98-107)
--- NOTE | 2024-11-24 09:05 | DVHINCON2 ---
Date of service: Nov 24, 2024 History of Present Illness HPI Patient is a 74-year-old gentleman who presented to the hospital with significant dizziness. He explains the dizziness as room spinning which was a lot and did not stop for few hours and he decided to come to the hospital. Denies any chest pain since yesterday. Is known to our practice from outside. Patient had a watchman device implanted in the middle of September 2024 ([facility]). Does have history of atrial fibrillation/paroxysmal AFib. He has not been on anticoagulation for awhile (history of SAH and brain AVM). He also has a [employer] pacemaker (last interrogated in early September 2024). Patient has had occasional chest discomforts (atypical). Cardiology is involved for cardiac aspects of care. Home Meds Reported Medications Tramadol HCl (Tramadol HCl) 50 Mg Tab, 50 MG PO DAILY, TAB 11/23/24 Pantoprazole Sodium (PANTOPRAZOLE SODIUM) 40 Mg Inj, 40 MG PO DAILY@BREAKFAST, INJ 11/23/24 Lamotrigine (Lamotrigine) 25 Mg Tab, 400 MG PO BID, TAB 11/23/24 Dronedarone Hydrochloride (Multaq) 400 Mg Tab, 200 MG PO BID 11/23/24 Metoprolol Succinate (Metoprolol Succinate Er) 50 Mg Tab, 1 TAB PO TID 11/23/24 Clonidine Hydrochloride (Clonidine Hcl) 0.1 Mg Tab, 1 TAB PO TID 11/23/24 Cyanocobalamin (B12) 1,000 Mcg Cap, 1000 MCG PO DAILY, CAP 06/23/23 Aspirin (Aspirin Low Dose) 81 Mg Chw, 81 MG PO DAILY, TAB.CHEW 06/23/23 Atorvastatin Calcium (ATORVASTATIN CALCIUM) 20 Mg Tab, 20 MG PO DAILY, TAB 06/23/23 Omeprazole Magnesium (Omeprazole) 20 Mg Tab, 20 MG PO DAILY, TAB 06/23/23 Clopidogrel Bisulfate (Plavix) 75 Mg Tab, 75 MG PO DAILY, TAB 06/23/23 Ranolazine (Ranolazine ER) 500 Mg Tab, 500 MG PO BID, TAB 06/23/23 Amlodipine Besylate (Amlodipine Besylate) 10 Mg Tab, 10 MG PO DAILY, TAB 06/23/23 Discontinued Reported Medications Metoprolol Tartrate (Metoprolol Tartrate) 100 Mg Tab, 100 MG PO BID, TAB 06/23/23 Lamotrigine (Lamotrigine) 200 Mg Tab, 200 MG PO BID, TAB 06/23/23 Lisinopril (Lisinopril) 20 Mg Tab, 20 MG PO BID, TAB 06/23/23 Past Medical History Others Past medical history includes hypertension, hyperlipidemia, old history of CVA, seizure disorder, coronary artery disease and status post CABG (2013), paroxysmal AFib, status post pacemaker ([facility]), SAH, tremor, history of Brain AVM, CKD, PAD, GERD, valvular heart disease, questionable pulmonary hypertension, 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 He did have Watchman device implanted in the middle of September 2024 (previously the Watchman could not be implanted in other facility). Patient Family History: Cardiovascular disease G8 FATHER Multisensory dizziness G8 MOTHER Smoker: Quit Alocohol: None Drugs: None Review of Systems Constitutional: No symptom reported Ears, Nose, & Throat: No symptom reported Pulmonary/Respiratory: No symptom reported All Other Systems Fourteen point review of system was performed. Relevant findings as per above and as per HPI. Otherwise negative. H&P Exam Vital Signs Vital Signs Date Time Temp Pulse Resp B/P (MAP) Pulse Ox O2 Delivery O2 Flow Rate FiO2 11/24/24 06:00 134/80 11/24/24 06:00 88 11/24/24 05:00 98.0 16 94 98.0 11/23/24 20:00 Room Air* 0 21 General Appeara: Well developed Head Exam: Normal inspection Eye Exam: bilateral eye PERRL Mouth: Normal Inspection Pulmonary/Respiratory: Lungs clear Cardiovascular/Chest: Systolic murmur Peripheral Pulses: 2+ carotid (R), 2+ carotid (L), 2+ femoral (R), 2+ femoral (L), 2+ dorsalis pedis (R), 2+ dorsalis pedis (L), 2+ Radial (R), 2+ Radial (L) Abdominal Exam: Normal bowel sounds, Soft Appearance: Appropriate appearance Eye contact/ Speech: Cooperative Thoughts/Psych: Normal thought pattern Labs/Xrays Labs Test 11/24/24 06:29 11/23/24 15:28 11/23/24 11:46 11/23/24 11:37 Range/Units White Blood Count 7.1 4.4-10.8 10^3/uL Red Blood Count 4.31 L 4.5-5.90 10^6/uL Hemoglobin 12.8 L 13.5-17.5 g/dL Hematocrit 36.8 #L 41.0-53.0 % Mean Corpuscular Volume 85.4 80.0-100.0 fL Mean Corpuscular Hemoglobin 29.7 28.0-32.0 pg Mean Corpuscular Hemoglobin Concent 34.8 32.0-36.0 g/dL Red Cell Distribution Width 13.4 11.8-14.3 % Platelet Count 210 140-450 10^3/uL Mean Platelet Volume 6.8 L 6.9-10.8 fL Neutrophils (%) (Auto) 59.4 37.0-80.0 % Lymphocytes (%) (Auto) 23.6 10.0-50.0 % Monocytes (%) (Auto) 10.9 0.0-12.0 % Eosinophils (%) (Auto) 5.3 0.0-7.0 % Basophils (%) (Auto) 0.8 0.0-2.0 % Neutrophils # (Auto) 4.2 1.6-8.6 10 ^3/uL Lymphocytes # (Auto) 1.7 0.4-5.4 10 ^3/uL Monocytes # (Auto) 0.8 0-1.3 10 ^3/uL Eosinophils # (Auto) 0.4 0-0.8 10 ^3/uL Basophils # (Auto) 0.1 0-0.2 10 ^3/uL Nucleated Red Blood Cells 0.1 % Sodium Level 139 136-145 mmol/L Potassium Level 4.3 3.5-5.1 mmol/L Chloride Level 107 98-107 mmol/L Carbon Dioxide Level 24 20-31 mmol/L Anion Gap 8 5-15 Blood Urea Nitrogen 15 9-23 mg/dL Creatinine 1.26 0.700-1.30 mg/dL Glomerular Filtration Rate Calc 59 >90 mL/min BUN/Creatinine Ratio 11.9 10.0-20.0 Serum Glucose 85 74-106 mg/dL Calcium Level 9.3 8.7-10.4 mg/dL Total Bilirubin 0.6 0.2-1.0 mg/dL Aspartate Amino Transferase (AST) 13 13-40 U/L Alanine Aminotransferase (ALT) < 9 7-40 U/L Alkaline Phosphatase 83 46-116 U/L Total Protein 6.4 5.7-8.2 g/dL Albumin 4.1 3.2-4.8 g/dL Troponin I High Sensitivity 3 L </=54 ng/L Urine Color Yellow Yellow Urine Clarity Clear Clear Urine pH 6.5 5.0-9.0 Urine Specific [place] 1.021 1.001-1.035 Urine Protein Trace H Negative Urine Ketones Negative Negative Urine Blood Negative Negative /uL Urine Nitrite Negative Negative Urine Bilirubin Negative Negative Urine Urobilinogen Normal Negative mg/dL Urine Leukocyte Esterase Negative Negative /uL Urine RBC 1 0 - 3 /hpf Urine Microscopic WBC 1 0-3 /HPF Urine Squamous Epithelial Cells None seen <5 /hpf Urine Bacteria None seen None Seen /hpf Urine Glucose Normal Normal mg/dL Lactic Acid Level 1.2 0.4-2.0 mmol/L B-Type Natriuretic Peptide 433.54 0-100 pg/mL Assessment/Plan Plan Patient is a 74-year-old gentleman who presented to the hospital with significant dizziness. He explains the dizziness as room spinning which was a lot and did not stop for few hours and he decided to come to the hospital. Denies any chest pain since yesterday. Is known to our practice from outside. Patient had a watchman device implanted in the middle of September 2024 ([facility]). Does have history of atrial fibrillation/paroxysmal AFib. He has not been on anticoagulation for awhile (history of SAH and brain AVM). He also has a [employer] pacemaker (last interrogated in early September 2024). Patient has had occasional chest discomforts (atypical). Cardiology is involved for cardiac aspects of care. Not in acute distress. Sitting in bed. No JVD. Mucosa is pink and wet. No carotid bruit. No goiter. Not using accessory muscles of breathing. Lungs are clear to auscultation. Cardiac: Regular, no thrill/gallop. Systolic murmur 2/6 in the apex is heard. Abdomen is soft. There is no gross mass/hepatomegaly. Extremities do not reveal edema. Dorsalis pedis is 2+ bilateral. 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 He did have Watchman device implanted in the middle of September 2024 (previously the Watchman could not be implanted in other facility). Nuclear stress test (performed in the office) of December 2022 revealed normal perfusion, ejection fraction of 64%. Echocardiogram of December 2022 (performed in the office) revealed ejection fraction of 60-65%, mild concentric left ventricular hypertrophy, moderate left atrial enlargement, mild right atrial enlargement, [id number] tricuspid regurgitation, trace AI/PI/MR and aortic root of 4 cm Echocardiogram (performed in [facility]) of August 2024 revealed mild concentric left ventricular hypertrophy, ejection fraction of 70%, grade 1 diastolic dysfunction, borderline right ventricular hypertrophy, severe left atrial enlargement and right ventricular systolic pressure of 37 mm Hg Creatinine: 1.53 - 1.26 Potassium: 4.1 - 4.3 Lactic acid: 1.2 BNP: 433.54 Troponin (high sensitive): 4 - 4 - 3 Chest x-ray revealed: IMPRESSION: 1. Bibasilar atelectasis EKG was poor quality Patient is 74-year-old man who presented with vertigo and dizziness which lasted half a day prior to presentation. There has been no chest pain on the day of presentation. Presentation is not considered cardiac. Patient does have history of old CVA and brain AVM. Does have history of atrial fibrillation. Has not been on anticoagulation for repeated previous bleedings and significant AVM and also SAH. It is of note the patient did have Watchman device couple of months back. Vertigo Dizziness Coronary artery disease, status post CABG Status post pacemaker ([employer]) implantation Paroxysmal AFib Old history of CVA Hypertension Hyperlipidemia Seizure disorder Valvular heart disease JONY on CKD GERD Tremors Cardiac suggestion for management: Manage on telemetry Follow-up electrolytes and kidney function tests and correct abnormalities Continue aspirin/Plavix Echocardiogram EKG Request for interrogation of pacemaker ([employer] [facility] [facility]) Neurology evaluation and follow-up Brain imaging as per Neurology Further evaluation and management depends on the above and clinical course Thank you for consultation A total of 75 minutes was spent reviewing the patient record, examining the patient, making a diagnostic and therapeutic plan, discussing this plan with medical personnel, following up on diagnostic studies and following the patient for clinical stability excluding any and all procedures. At least 50% of this time was spent in direct, [id number] contact. Thank you for allowing me to participate in this patient's care. Further recommendations will depend on patient's clinical course. Please do not hesitate to contact me if you have any questions or concerns. This medical document was created using electronic medical record system with [employer] computerized dictation system. Although this document has been carefully reviewed, there may still be some phonetic and typographical errors. These areas are purely typographical due to the imperfection of the software programs, and do not reflect any compromise in the patient's medical care. Plan discussed with: Patient, Other (nurse) LEXY LINDER MD Nov 24, 2024 09:05
--- NOTE | 2024-11-24 09:22 | DVHPN2 ---
Progress Note - Dictate Date Seen: Nov 24, 2024 Medical Necessity Reason Pt with a Central, PICC or Fol: No Subjective Mr. Engle is a 74 years old gentleman with a history of hypertension, dyslipidemia, atrial fibrillation status post Watchman procedure, coronary artery disease, SAH, tremor, seizure, he came to the [facility] on 11/23/2024 with a chief company of dizziness. I have seen and examined the patient, I have talked to his nurse, and other medical staff, he is oriented x3, but is not a good historian but has a lot of questions concerning He reports doing fine, I see tremors in both hands I have discussed the case with Dr. Kwong He agrees that he needs to follow up with [place] [facility] for ongoing care Reports from my office CT head, 05/22/16: 1. Loss of the normal darby-white matter differentiation in the right frontal lobe, left posterior parietal lobe and left occipital lobe with thickening of the cortical margin and underlying edema causing effacement of the sulci. MR head, 12/2019: Small SAH H over left parietal lobe MRI head, 12/29/19: 1. Small subarachnoid blood products suspected over the left parietal cortex posteriorly and possibly the right central sulcus MR brain 12/28/2021: Small SAH CT head, 08/18/2022: SAH of left parietal lobe CT head, comparison: 08/16/2022. 10/20/2022: Essentially unchanged, laminar hyperattenuation in the left parietal lobe similar to most recent prior exam with fullness of the left parietal lobe sulci and hypoattenuation, most likely representing dystrophic calcifications or cortical laminar necrosis sequelae of prior cerebral infarct MRI head, 08/22/22: Up to 4.2 cm localized area of increased FLAIR signal in right superior frontoparietal lobe centrum semiovale likely due to chronic ischemia infarct. CTA head, neck, 08/17/2022: Possible vascular malformation Urinalysis, 11/20/2024: Unremarkable CBC, 07/24/24: Unremarkable BUN/CR, 11/23/2024: 20/1.53 GFR, : 47 CT head, 05/22/2016: 1. Loss of the normal darby-white matter differentiation in the right frontal lobe, left posterior parietal lobe and left occipital lobe with thickening of the cortical margin and underlying edema causing effacement of the sulci. The appearance is highly concerning for a underlying malignancy with vasogenic edema. Ischemia is felt to be unlikely given the appearance and distribution. There is no associated mass effect or midline shift. Recommend obtaining MRI with gadolinium for further characterization. 2. No acute areas of intracranial hemorrhage or obvious acute territorial infarct. 3. Age related atrophy and small vessel ischemic change. vital signs Vital Sign Date Time Temp Pulse Resp B/P (MAP) Pulse Ox O2 Delivery O2 Flow Rate FiO2 11/24/24 06:00 134/80 11/24/24 06:00 88 11/24/24 05:00 98.0 16 94 98.0 11/23/24 20:00 Room Air* 0 21 Total Intake and Output 11/23/24 11/23/24 11/24/24 15:00 23:00 07:00 Intake Total 100 ml Balance 100 ml medications Current Medications Medications Dose Ordered Sig/Iris Route Start Time Stop Time Status Last Admin Dose Admin Acetaminophen/ Hydrocodone Bitart 1 tab Q4HP PRN PO 11/23/24 15:15 Ondansetron HCl 4 mg Q4HP PRN IV 11/23/24 15:15 Docusate Sodium 100 mg BIDPRN PRN PO 11/23/24 15:15 Acetaminophen 650 mg Q6HP PRN PO 11/23/24 15:15 Atorvastatin Calcium 20 mg DAILY PO 11/24/24 10:00 Clopidogrel Bisulfate 75 mg DAILY PO 11/24/24 10:00 Ranolazine 500 mg BID PO 11/23/24 22:00 11/23/24 21:36 500 MG Aspirin 81 mg DAILY PO 11/24/24 10:00 Metoprolol Succinate 50 mg TID PO 11/23/24 22:00 11/23/24 21:37 50 MG Pantoprazole Sodium 40 mg DAILY PO 11/24/24 10:00 Clonidine HCl 0.1 mg TID PO 11/23/24 22:00 11/23/24 21:36 0.1 MG Lamotrigine 400 mg BID PO 11/23/24 22:00 11/23/24 21:36 400 MG Dronedarone 400 mg BID PO 11/23/24 22:00 Clonidine HCl 0.1 mg Q6HP PRN PO 11/23/24 16:15 Lorazepam 1 mg Q5MINP PRN IV 11/23/24 23:15 Lorazepam 1 mg ONCE PRN IV 11/23/24 23:15 objective General: the patient is well developed and nourished. No acute distress. MENTAL STATUS: Subjective SPEECH, LANGUAGE, HIGHER CORTICAL FUNCTION: no aphasia or dysathria. CRANIAL NERVES: Pupils are equal, round and reactive. EOMs full and conjugate. No nystagmus. Facial sensation intact in all three divisions bilaterally. Mandibular strength intact. Facial muscles symmetrical and strength intact. SENSATION: Sensation to touch and pinprick is normal. MOTOR: Normal tone in the upper and lower extremity. Normal muscle bulk. No fasciculations. Postural tremor in both upper extremities. Muscle strength of the major groups in the extremities is 5/5. REFLEXES: Deep tendon reflexes are symmetrical. No pathological reflexes. CEREBELLAR/COORDINATION: Finger to nose is normal bilaterally. GAIT/STATION: Mildly unsteady laboratory and microbiology Laboratory Tests 11/24/24 06:29 Test 11/24/24 06:29 Range/Units Serum Glucose 85 74-106 mg/dL Problem List Dizziness, Likely benign paroxysmal positional vertigo, Rule out other etiology Chronic stroke Recurrent subarachnoid hemorrhage Atrial fibrillation, status post Watchman procedure Atrial fibrillation status post pacemaker insertion (2023) Reports grand mal seizure Essential tremors Assessment/Plan Monitoring Supportive treatment Telemetry EEG MR brain scan Lamotrigine 400 mg Bid Aspirin 81 mg daily, Plavix 75 mg daily, Lipitor 20 mg daily Ativan for seizure breakthrough Further address his essential tremor as outpatient More recommendation per clinical course This medical document was created using an electronic medical record system with [employer] dictation system. Although this document has been carefully reviewed, there may still be some phonetic and typographical errors. These areas are purely typographical due to imperfections of the software programs, and do not reflect any compromise in the patient's medical care. Prognosis poor Plan discussed with: Patient, Other Total Time (mins): 40 MICHAEL CHAPARRO MD Nov 24, 2024 09:22
[2024-11-24] MEDS: ATORVASTATIN 20 MG TAB PO SCH (10:00)
[2024-11-24] MEDS: CLOPIDOGREL BISULFATE 75 MG TAB PO SCH (10:04)
[2024-11-24] MEDS: ASPirin-EC 81 mg tab PO SCH (10:04)
[2024-11-24] MEDS: PANTOPRAZOLE 40 MG TAB PO SCH (10:05)
--- NOTE | 2024-11-24 20:11 | DVHPN2 ---
Subjective Seen in bed and no seizures Reviewed: H&P, Labs Changes from previous H/P or p: No Changes Eyes: No Pain, No Vision change, No Conjunctivae inflammation, No Eyelid inflammation, No Other, No Redness ENT: No Ear pain, No Ear discharge, No Nose pain, No Nose discharge, No Nose congestion, No Mouth pain, No Mouth swelling, No Throat pain, No Throat swelling, No Other Cardiovascular: No Chest Pain, No Palpitations, No Orthopnea, No Paroxysmal Noc. Dyspnea, No Edema, No Lt Headedness, No Other Respiratory: No Cough, No Dry, No Shortness of breath, No SOB with excertion, No Wheezing, No Hemoptysis, No Pleuritic Pain, No Sputum, No Other Gastrointestinal: No Nausea, No Vomiting, No Abdominal Pain, No Diarrhea, No Constipation, No Melena, No Hematochezia, No Other Genitourinary: No Dysuria, No Frequency, No Incontinence, No Hematuria, No Retention, No Other Musculoskeletal: No other, No neck pain, No shoulder pain, No arm pain, No back pain, No hand pain, No leg pain, No foot pain Skin: No Rash, No Lesions, No Jaundice, No Bruising, No Other Objective Vitals Vital Signs Date Time Temp Pulse Resp B/P (MAP) Pulse Ox O2 Delivery O2 Flow Rate FiO2 11/24/24 17:00 97.8 61 17 142/98 (113) 95 97.8 11/24/24 08:00 Room Air* 0 21 Intake/Output Intake and Output 11/24/24 07:00 Intake Total 100 ml Balance 100 ml Intake Oral 100 ml # Voids 7 General Appearance: Alert, Oriented X3 HEENT: Atraumatic Lungs: Clear to auscultation Cardiovascular: Regular rate, Normal S1, Normal S2 Medications Current Medications Medications Dose Ordered Sig/Iris Route Start Time Stop Time Status Last Admin Dose Admin Acetaminophen/ Hydrocodone Bitart 1 tab Q4HP PRN PO 11/23/24 15:15 Ondansetron HCl 4 mg Q4HP PRN IV 11/23/24 15:15 Docusate Sodium 100 mg BIDPRN PRN PO 11/23/24 15:15 Acetaminophen 650 mg Q6HP PRN PO 11/23/24 15:15 Atorvastatin Calcium 20 mg DAILY PO 11/24/24 10:00 Clopidogrel Bisulfate 75 mg DAILY PO 11/24/24 10:00 11/24/24 10:04 75 MG Ranolazine 500 mg BID PO 11/23/24 22:00 11/24/24 10:04 500 MG Aspirin 81 mg DAILY PO 11/24/24 10:00 11/24/24 10:04 81 MG Metoprolol Succinate 50 mg TID PO 11/23/24 22:00 11/24/24 15:44 50 MG Pantoprazole Sodium 40 mg DAILY PO 11/24/24 10:00 11/24/24 10:05 40 MG Clonidine HCl 0.1 mg TID PO 11/23/24 22:00 11/23/24 21:36 0.1 MG Lamotrigine 400 mg BID PO 11/23/24 22:00 11/24/24 10:04 400 MG Dronedarone 400 mg BID PO 11/23/24 22:00 Clonidine HCl 0.1 mg Q6HP PRN PO 11/23/24 16:15 11/24/24 12:09 0.1 MG Lorazepam 1 mg Q5MINP PRN IV 11/23/24 23:15 Lorazepam 1 mg ONCE PRN IV 11/23/24 23:15 Laboratory Results Laboratory Tests 11/24/24 06:29 Chemistry Test 11/24/24 06:29 Albumin 4.1 g/dL (3.2-4.8) Calcium Level 9.3 mg/dL (8.7-10.4) Total Protein 6.4 g/dL (5.7-8.2) LFT Test 11/24/24 06:29 Alanine Aminotransferase (ALT) < 9 U/L (7-40) Alkaline Phosphatase 83 U/L (46-116) Aspartate Amino Transferase (AST) 13 U/L (13-40) Total Bilirubin 0.6 mg/dL (0.2-1.0) Urinalysis Test 11/23/24 11:46 Urine Color Yellow (Yellow) Urine Clarity Clear (Clear) Urine pH 6.5 (5.0-9.0) Urine Specific [place] 1.021 (1.001-1.035) Urine Protein Trace (Negative) H Urine Ketones Negative (Negative) Urine Blood Negative /uL (Negative) Urine Nitrite Negative (Negative) Urine Bilirubin Negative (Negative) Urine Urobilinogen Normal mg/dL (Negative) Urine Leukocyte Esterase Negative /uL (Negative) Urine RBC 1 /hpf (0 - 3) Urine Microscopic WBC 1 /HPF (0-3) Urine Squamous Epithelial Cells None seen /hpf (<5) Urine Bacteria None seen /hpf (None Seen) Urine Glucose Normal mg/dL (Normal) Microbiology Microbiology Date/Time Source Procedure Growth Status 11/23/24 18:30 Nose MRSA Screen - Final Complete Assessment/Plan Assessment/Plan Autonomic disorder, Hypertension, Hyperlipidemia, Seizures, Neurology on consult CT head ordered cardiology consutled echo pending Plan discussed with: Patient Date of Service: Nov 24, 2024 Billing Provider: YAYA STOKES MD Common Visit Codes: [id number] INP/OBS CARE(HIGH) YAYA STOKES MD Nov 24, 2024 20:11
[2024-11-25] VITALS (10 sets, daily range): BP systolic 118–147; BP diastolic 65–87; PULSE 59–61; RESP 17–22; TEMP 97.1–97.9; O2SAT 95–100
--- NOTE | 2024-11-25 07:10 | DVHSR ---
APPROVED REPORT EXAM: Two-dimensional and M-mode echocardiogram with Doppler and color Doppler. Blood Pressure: 179/111 mmHg INDICATION Per Doctor Varghese Order Surgery/Intervention Pacemaker: CABG: RISK FACTORS Height: 5' 8", Weight: 160 DIMENSIONS LVDd3.8 (3.8-5.7cm)LA (2D)4.7 (1.9-4.0cm)Aortic Root4.1 (2.0-3.7cm) LVDs2.6 (2.5-4.0cm)LA (MM) (1.9-4.0cm)Aortic Cusp Exc1.8 (1.5-2.0cm) EF (%) 60.0 (55-70%)Rt. Atrium4.2 (1.9-4.0cm)Asc. Aorta cm IVSd1.1 (0.7-1.1cm)RV (D) (1.8-2.4cm) PWd0.9 (0.7-1.1cm) Mitral Valve MitralMitral Stenosis E wave0.70m/sMV Mean GR.mmHg A wave0.50m/sMV Peak GR.mmHg E/A ratio1.42D MVAcm2 Aortic Valve Aortic ValveAortic Stenosis V10.60m/Rosa Mean GR.2mmHg V20.80m/Rosa Peak GR.3mmHg LVOT Diameter2.4 (1.8-2.4cm)Doppler AVA3.39cm2 Pulmonic Valve V20.60m/s Tricuspid Valve TR Velocity2.50m/s [id number] Conclusion Left ventricle: Mild concentric left ventricular hypertrophy was seen. LVEF was around 60%. There was no gross wall motion abnormality. Abnormal relaxation of left ventriclardiastolic function was s een. Right ventricle was mildly dilated with normal systolic function. Both atria were mildly dilated. Aortic valve was trileaflet. There was trace aortic insufficiency. There was no aortic stenosis. T here was trace mitral and tricuspid regurgitation. There was trace pulmonary valve insufficiency. Right ventricular systolic pressure was assessed at 36 mm Hg. There was no pericardial effusion. Ao rtic root was mildly dilated at 4.1 cm.
--- NOTE | 2024-11-25 07:12 | DVHPN2 ---
Progress Note - Dictate Date Seen: Nov 25, 2024 Medical Necessity Reason Pt with a Central, PICC or Fol: No vital signs Vital Sign Date Time Temp Pulse Resp B/P (MAP) Pulse Ox O2 Delivery O2 Flow Rate FiO2 11/25/24 07:00 117/70 11/25/24 06:01 61 11/25/24 05:00 97.9 17 95 97.9 11/24/24 20:00 Room Air* 0 21 Total Intake and Output 11/24/24 11/24/24 11/25/24 15:00 23:00 07:00 Intake Total 120 ml 333 ml 250 ml Balance 120 ml 333 ml 250 ml medications Current Medications Medications Dose Ordered Sig/Iris Route Start Time Stop Time Status Last Admin Dose Admin Acetaminophen/ Hydrocodone Bitart 1 tab Q4HP PRN PO 11/23/24 15:15 Ondansetron HCl 4 mg Q4HP PRN IV 11/23/24 15:15 Docusate Sodium 100 mg BIDPRN PRN PO 11/23/24 15:15 Acetaminophen 650 mg Q6HP PRN PO 11/23/24 15:15 Atorvastatin Calcium 20 mg DAILY PO 11/24/24 10:00 Clopidogrel Bisulfate 75 mg DAILY PO 11/24/24 10:00 11/24/24 10:04 75 MG Ranolazine 500 mg BID PO 11/23/24 22:00 11/24/24 21:15 500 MG Aspirin 81 mg DAILY PO 11/24/24 10:00 11/24/24 10:04 81 MG Metoprolol Succinate 50 mg TID PO 11/23/24 22:00 11/25/24 06:01 50 MG Pantoprazole Sodium 40 mg DAILY PO 11/24/24 10:00 11/24/24 10:05 40 MG Clonidine HCl 0.1 mg TID PO 11/23/24 22:00 11/25/24 06:01 0.1 MG Lamotrigine 400 mg BID PO 11/23/24 22:00 11/24/24 21:16 400 MG Dronedarone 400 mg BID PO 11/23/24 22:00 11/24/24 21:16 400 MG Clonidine HCl 0.1 mg Q6HP PRN PO 11/23/24 16:15 11/24/24 12:09 0.1 MG Lorazepam 1 mg Q5MINP PRN IV 11/23/24 23:15 Lorazepam 1 mg ONCE PRN IV 11/23/24 23:15 laboratory and microbiology Laboratory Tests 11/24/24 06:29 Test 11/24/24 06:29 Range/Units Serum Glucose 85 74-106 mg/dL Assessment/Plan Patient is a 74-year-old gentleman who presented to the hospital with significant dizziness. He explains the dizziness as room spinning which was a lot and did not stop for few hours and he decided to come to the hospital. Denies any chest pain since yesterday. Is known to our practice from outside. Patient had a watchman device implanted in the middle of September 2024 ([facility]). Does have history of atrial fibrillation/paroxysmal AFib. He has not been on anticoagulation for awhile (history of SAH and brain AVM). He also has a [employer] pacemaker (last interrogated in early September 2024). Patient has had occasional chest discomforts (atypical). Cardiology is involved for cardiac aspects of care. Not in acute distress. Sitting in bed. No JVD. Mucosa is pink and wet. No carotid bruit. No goiter. Not using accessory muscles of breathing. Lungs are clear to auscultation. Cardiac: Regular, no thrill/gallop. Systolic murmur 2/6 in the apex is heard. Abdomen is soft. There is no gross mass/hepatomegaly. Extremities do not reveal edema. Dorsalis pedis is 2+ bilateral. 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 He did have Watchman device implanted in the middle of September 2024 (previously the Watchman could not be implanted in other facility). Nuclear stress test (performed in the office) of December 2022 revealed normal perfusion, ejection fraction of 64%. Echocardiogram of December 2022 (performed in the office) revealed ejection fraction of 60-65%, mild concentric left ventricular hypertrophy, moderate left atrial enlargement, mild right atrial enlargement, [id number] tricuspid regurgitation, trace AI/PI/MR and aortic root of 4 cm Echocardiogram (performed in [facility]) of August 2024 revealed mild concentric left ventricular hypertrophy, ejection fraction of 70%, grade 1 diastolic dysfunction, borderline right ventricular hypertrophy, severe left atrial enlargement and right ventricular systolic pressure of 37 mm Hg Creatinine: 1.53 - 1.26 Potassium: 4.1 - 4.3 Lactic acid: 1.2 BNP: 433.54 Troponin (high sensitive): 4 - 4 - 3 Chest x-ray revealed: IMPRESSION: 1. Bibasilar atelectasis EKG was poor quality. Repeat EKG revealed paced A and sensed V: non specific ST T changes Echocardiogram revealed: Left ventricle: Mild concentric left ventricular hypertrophy was seen. LVEF was around 60%. There was no gross wall motion abnormality. Abnormal relaxation of left ventricular diastolic function was seen. Right ventricle was mildly dilated with normal systolic function. Both atria were mildly dilated. Aortic valve was trileaflet. There was trace aortic insufficiency. There was no aortic stenosis. There was trace mitral and tricuspid regurgitation. There was trace pulmonary valve insufficiency. Right ventricular systolic pressure was assessed at 36 mm Hg. There was no pericardial effusion. Aortic root was mildly dilated at 4.1 cm. Patient is 74-year-old man who presented with vertigo and dizziness which lasted half a day prior to presentation. There has been no chest pain on the day of presentation. Presentation is not considered cardiac. Patient does have history of old CVA and brain AVM. Does have history of atrial fibrillation. Has not been on anticoagulation for repeated previous bleedings and significant AVM and also SAH. It is of note the patient did have Watchman device couple of months back. Vertigo Dizziness Coronary artery disease, status post CABG Status post pacemaker ([employer]) implantation Paroxysmal AFib Old history of CVA Hypertension Hyperlipidemia Seizure disorder Valvular heart disease JONY on CKD GERD Tremors Cardiac suggestion for management: Manage on telemetry Follow-up electrolytes and kidney function tests and correct abnormalities Continue aspirin/Plavix Request for interrogation of pacemaker ([employer]) Neurology follow-up Brain imaging as per Neurology Further evaluation and management depends on the above and clinical course A total of 55 minutes was spent reviewing the patient record, examining the patient, making a diagnostic and therapeutic plan, discussing this plan with medical personnel, following up on diagnostic studies and following the patient for clinical stability excluding any and all procedures. At least 50% of this time was spent in direct, [id number] contact. Thank you for allowing me to participate in this patient's care. Further recommendations will depend on patient's clinical course. Please do not hesitate to contact me if you have any questions or concerns. This medical document was created using electronic medical record system with [employer] computerized dictation system. Although this document has been carefully reviewed, there may still be some phonetic and typographical errors. These areas are purely typographical due to the imperfection of the software programs, and do not reflect any compromise in the patient's medical care. Plan discussed with: Patient, Other (nurse) LEXY LINDER MD Nov 25, 2024 07:12
--- NOTE | 2024-11-25 09:13 | ECG ---
[facility] Test Date: 2024-11-24 Test Time: 10:38:17 Pat Name: ANDREW SAEED Department: Respiratoy Room: 0223T Gender: M High Value Associate: : 1950 Requested By: LEXY LINEDR Order Number: [id number] Reading MD: Amilcar Souza Measurements Intervals [place] Rate: 60 P: 0 [place]: 108 QRS: 47 QRSD: 102 T: 173 QT: 399 QTc: 399 Interpretive Statements Atrial-paced rhythm Borderline repolarization abnormality Electronically Signed On 11-30-2024 13:50:35 PDT by Amilcar Souza Please click the below link to view image of tracing.
--- NOTE | 2024-11-25 11:26 | DVH ---
MRI BRAIN HEAD WO CONTRAST INDICATION: CVA, vertigo EXAM DATE: 11/25/2024 10:35 AM COMPARISON: None PROCEDURE: Using a 1.5 Manasa scanner, multisequence multiplanar imaging of the brain was obtained. FINDINGS: Sulcal effacement of the left posterior parietal and occipital lobe. The brain otherwise sh ows normal morphology and signal characteristics. No abnormal , diffusion restriction, or susceptibil ity hypointensity is present. The ventricles are prominent in size. The midline structures are intact . The major intracranial flow voids are present. The aerated spaces are normal. The orbital contents and extracranial soft tissues appear normal. IMPRESSION: Sulcal effacement of the left posterior parietal and occipital lobe could be cerebritis.
--- NOTE | 2024-11-25 16:28 | DVHPN2 ---
Subjective Seen in bed and no seizures Reviewed: H&P, Labs Changes from previous H/P or p: No Changes Eyes: No Pain, No Vision change, No Conjunctivae inflammation, No Eyelid inflammation, No Other, No Redness ENT: No Ear pain, No Ear discharge, No Nose pain, No Nose discharge, No Nose congestion, No Mouth pain, No Mouth swelling, No Throat pain, No Throat swelling, No Other Cardiovascular: No Chest Pain, No Palpitations, No Orthopnea, No Paroxysmal Noc. Dyspnea, No Edema, No Lt Headedness, No Other Respiratory: No Cough, No Dry, No Shortness of breath, No SOB with excertion, No Wheezing, No Hemoptysis, No Pleuritic Pain, No Sputum, No Other Gastrointestinal: No Nausea, No Vomiting, No Abdominal Pain, No Diarrhea, No Constipation, No Melena, No Hematochezia, No Other Genitourinary: No Dysuria, No Frequency, No Incontinence, No Hematuria, No Retention, No Other Musculoskeletal: No other, No neck pain, No shoulder pain, No arm pain, No back pain, No hand pain, No leg pain, No foot pain Skin: No Rash, No Lesions, No Jaundice, No Bruising, No Other Objective Vitals Vital Signs Date Time Temp Pulse Resp B/P (MAP) Pulse Ox O2 Delivery O2 Flow Rate FiO2 11/25/24 13:09 97.6 60 18 147/78 (101) 100 97.6 11/25/24 07:44 Room Air* 0 21 Intake/Output Intake and Output 11/25/24 07:00 Intake Total 703 ml Balance 703 ml Intake Oral 703 ml # Voids 7 # Bowel Movements 1 General Appearance: Alert, Oriented X3 HEENT: Atraumatic Lungs: Clear to auscultation Cardiovascular: Regular rate, Normal S1, Normal S2 Medications Current Medications Medications Dose Ordered Sig/Iris Route Start Time Stop Time Status Last Admin Dose Admin Acetaminophen/ Hydrocodone Bitart 1 tab Q4HP PRN PO 11/23/24 15:15 Ondansetron HCl 4 mg Q4HP PRN IV 11/23/24 15:15 Docusate Sodium 100 mg BIDPRN PRN PO 11/23/24 15:15 Acetaminophen 650 mg Q6HP PRN PO 11/23/24 15:15 Clopidogrel Bisulfate 75 mg DAILY PO 11/24/24 10:00 11/25/24 09:43 75 MG Ranolazine 500 mg BID PO 11/23/24 22:00 11/25/24 09:42 500 MG Pantoprazole Sodium 40 mg DAILY PO 11/24/24 10:00 11/25/24 09:42 40 MG Lamotrigine 400 mg BID PO 11/23/24 22:00 11/25/24 09:43 400 MG Dronedarone 400 mg BID PO 11/23/24 22:00 11/25/24 09:49 400 MG Clonidine HCl 0.1 mg Q6HP PRN PO 11/23/24 16:15 11/24/24 12:09 0.1 MG Lorazepam 1 mg Q5MINP PRN IV 11/23/24 23:15 Lorazepam 1 mg ONCE PRN IV 11/23/24 23:15 Aspirin 81 mg HS PO 11/25/24 22:00 Atorvastatin Calcium 20 mg HS PO 11/25/24 22:00 Laboratory Results Laboratory Tests 11/24/24 06:29 Urinalysis Test 11/23/24 11:46 Urine Color Yellow (Yellow) Urine Clarity Clear (Clear) Urine pH 6.5 (5.0-9.0) Urine Specific [place] 1.021 (1.001-1.035) Urine Protein Trace (Negative) H Urine Ketones Negative (Negative) Urine Blood Negative /uL (Negative) Urine Nitrite Negative (Negative) Urine Bilirubin Negative (Negative) Urine Urobilinogen Normal mg/dL (Negative) Urine Leukocyte Esterase Negative /uL (Negative) Urine RBC 1 /hpf (0 - 3) Urine Microscopic WBC 1 /HPF (0-3) Urine Squamous Epithelial Cells None seen /hpf (<5) Urine Bacteria None seen /hpf (None Seen) Urine Glucose Normal mg/dL (Normal) Microbiology Microbiology Date/Time Source Procedure Growth Status 11/23/24 18:30 Nose MRSA Screen - Final Complete Assessment/Plan Assessment/Plan Autonomic disorder, Hypertension, Hyperlipidemia, Seizures, Neurology on consult MRI reviewed and documented cerebritis, will await neurology input cardiology on consult, pacemaker interrogation pending echo with normal EF Dispo: DC tomorrow depending on neurology input Plan discussed with: Patient Date of Service: Nov 25, 2024 Billing Provider: YAYA STOKES MD Common Visit Codes: [id number] INP/OBS CARE(HIGH) YAYA STOKES MD Nov 25, 2024 16:28
[2024-11-25] MEDS ORDERED: LORazepam 2MG/ML-1ML VIAL IV PRN (21:30)
--- NOTE | 2024-11-25 21:31 | DVHPN2 ---
Progress Note - Dictate Date Seen: Nov 25, 2024 Medical Necessity Reason Pt with a Central, PICC or Fol: No Subjective Mr. Engle is a 74 years old gentleman with a history of hypertension, dyslipidemia, atrial fibrillation status post Watchman procedure, coronary artery disease, SAH, tremor, seizure, he came to the [facility] on 11/23/2024 with a chief company of dizziness. I have seen and examined the patient, I have talked to his nurse, and other medical staff, he is oriented x3, he has a lot of questions He reports no headache He had a spell of dizziness/spinning sensation earlier today when he was turning his head Reports from my office CT head, 05/22/16: 1. Loss of the normal darby-white matter differentiation in the right frontal lobe, left posterior parietal lobe and left occipital lobe with thickening of the cortical margin and underlying edema causing effacement of the sulci. MR head, 12/2019: Small SAH H over left parietal lobe MRI head, 12/29/19: 1. Small subarachnoid blood products suspected over the left parietal cortex posteriorly and possibly the right central sulcus MR brain 12/28/2021: Small SAH CT head, 08/18/2022: SAH of left parietal lobe CT head, comparison: 08/16/2022. 10/20/2022: Essentially unchanged, laminar hyperattenuation in the left parietal lobe similar to most recent prior exam with fullness of the left parietal lobe sulci and hypoattenuation, most likely representing dystrophic calcifications or cortical laminar necrosis sequelae of prior cerebral infarct MRI head, 08/22/22: Up to 4.2 cm localized area of increased FLAIR signal in right superior frontoparietal lobe centrum semiovale likely due to chronic ischemia infarct. CTA head, neck, 08/17/2022: Possible vascular malformation Urinalysis, 11/20/2024: Unremarkable CBC, 07/24/24: Unremarkable BUN/CR, 11/23/2024: 20/1.53 GFR, : 47 CT head, 05/22/2016: 1. Loss of the normal darby-white matter differentiation in the right frontal lobe, left posterior parietal lobe and left occipital lobe with thickening of the cortical margin and underlying edema causing effacement of the sulci. The appearance is highly concerning for a underlying malignancy with vasogenic edema. Ischemia is felt to be unlikely given the appearance and distribution. There is no associated mass effect or midline shift. Recommend obtaining MRI with gadolinium for further characterization. 2. No acute areas of intracranial hemorrhage or obvious acute territorial infarct. 3. Age related atrophy and small vessel ischemic change MR head, 11/25/2024: Sulcal effacement of the left posterior parietal and occipital lobe could be cerebritis. vital signs Vital Sign Date Time Temp Pulse Resp B/P (MAP) Pulse Ox O2 Delivery O2 Flow Rate FiO2 11/25/24 20:53 97.4 60 22 144/87 (106) 98 97.4 11/25/24 07:44 Room Air* 0 21 Total Intake and Output 11/24/24 11/24/24 11/25/24 15:00 23:00 07:00 Intake Total 120 ml 333 ml 250 ml Balance 120 ml 333 ml 250 ml medications Current Medications Medications Dose Ordered Sig/Iris Route Start Time Stop Time Status Last Admin Dose Admin Acetaminophen/ Hydrocodone Bitart 1 tab Q4HP PRN PO 11/23/24 15:15 Ondansetron HCl 4 mg Q4HP PRN IV 11/23/24 15:15 Docusate Sodium 100 mg BIDPRN PRN PO 11/23/24 15:15 Acetaminophen 650 mg Q6HP PRN PO 11/23/24 15:15 Clopidogrel Bisulfate 75 mg DAILY PO 11/24/24 10:00 11/25/24 09:43 75 MG Ranolazine 500 mg BID PO 11/23/24 22:00 11/25/24 09:42 500 MG Pantoprazole Sodium 40 mg DAILY PO 11/24/24 10:00 11/25/24 09:42 40 MG Lamotrigine 400 mg BID PO 11/23/24 22:00 11/25/24 09:43 400 MG Dronedarone 400 mg BID PO 11/23/24 22:00 11/25/24 09:49 400 MG Clonidine HCl 0.1 mg Q6HP PRN PO 11/23/24 16:15 11/24/24 12:09 0.1 MG Lorazepam 1 mg Q5MINP PRN IV 11/23/24 23:15 Lorazepam 1 mg ONCE PRN IV 11/23/24 23:15 Aspirin 81 mg HS PO 11/25/24 22:00 Atorvastatin Calcium 20 mg HS PO 11/25/24 22:00 objective General: the patient is well developed and nourished. No acute distress. MENTAL STATUS: Subjective SPEECH, LANGUAGE, HIGHER CORTICAL FUNCTION: no aphasia or dysathria. CRANIAL NERVES: Pupils are equal, round and reactive. EOMs full and conjugate. No nystagmus. Facial sensation intact in all three divisions bilaterally. Mandibular strength intact. Facial muscles symmetrical and strength intact. SENSATION: Sensation to touch and pinprick is normal. MOTOR: Normal tone in the upper and lower extremity. Normal muscle bulk. No fasciculations. Postural tremor in both upper extremities. Muscle strength of the major groups in the extremities is 5/5. REFLEXES: Deep tendon reflexes are symmetrical. No pathological reflexes. CEREBELLAR/COORDINATION: Finger to nose is normal bilaterally. GAIT/STATION: Mildly unsteady laboratory and microbiology Laboratory Tests 11/24/24 06:29 Test 11/24/24 06:29 Range/Units Serum Glucose 85 74-106 mg/dL Problem List Dizziness, Likely benign paroxysmal positional vertigo, Rule out other etiology Chronic stroke Recurrent subarachnoid hemorrhage Atrial fibrillation, status post Watchman procedure Atrial fibrillation status post pacemaker insertion (2023) Reports grand mal seizure Essential tremors Cerebritis per MRI Assessment/Plan Monitoring Supportive treatment Telemetry EEG MR brain scan with contrast Lamotrigine 400 mg Bid Aspirin 81 mg daily, Plavix 75 mg daily, Lipitor 20 mg daily Ativan for seizure breakthrough Further address his essential tremor as outpatient More recommendation per clinical course This medical document was created using an electronic medical record system with [email or web address] dictation system. Although this document has been carefully reviewed, there may still be some phonetic and typographical errors. These areas are purely typographical due to imperfections of the software programs, and do not reflect any compromise in the patient's medical care. Prognosis poor Plan discussed with: Other MICHAEL CHAPARRO MD Nov 25, 2024 21:31
[2024-11-25] MEDS: ATORVASTATIN 20 MG TAB PO SCH (22:45)
[2024-11-25] MEDS: ASPirin-EC 81 mg tab PO SCH (22:46)
[2024-11-25] MEDS: HYDROcodone-ACET 5/325MG TAB PO PRN (23:51)
[2024-11-26] VITALS (8 sets, daily range): BP systolic 103–162; BP diastolic 65–93; PULSE 60–78; RESP 16–20; TEMP 97.3–98.2; O2SAT 9–97
[2024-11-26] MEDS: ONDANSETRON HCL 4 MG/2 ML VIAL IV PRN (11:45)
--- NOTE | 2024-11-26 11:53 | DVHPN2 ---
Progress Note - Dictate Date Seen: Nov 26, 2024 Medical Necessity Reason Pt with a Central, PICC or Fol: No vital signs Vital Sign Date Time Temp Pulse Resp B/P (MAP) Pulse Ox O2 Delivery O2 Flow Rate FiO2 11/26/24 08:43 97.7 62 16 126/76 (93) 95 97.7 11/26/24 08:00 Room Air* 0 21 Total Intake and Output 11/25/24 11/25/24 11/26/24 15:00 23:00 07:00 Intake Total 120 ml 1020 ml 1600 ml Balance 120 ml 1020 ml 1600 ml medications Current Medications Medications Dose Ordered Sig/Iris Route Start Time Stop Time Status Last Admin Dose Admin Acetaminophen/ Hydrocodone Bitart 1 tab Q4HP PRN PO 11/23/24 15:15 11/25/24 23:51 1 TAB Ondansetron HCl 4 mg Q4HP PRN IV 11/23/24 15:15 Docusate Sodium 100 mg BIDPRN PRN PO 11/23/24 15:15 Acetaminophen 650 mg Q6HP PRN PO 11/23/24 15:15 Clopidogrel Bisulfate 75 mg DAILY PO 11/24/24 10:00 11/26/24 10:15 75 MG Ranolazine 500 mg BID PO 11/23/24 22:00 11/26/24 10:15 500 MG Pantoprazole Sodium 40 mg DAILY PO 11/24/24 10:00 11/26/24 10:16 40 MG Lamotrigine 400 mg BID PO 11/23/24 22:00 11/26/24 10:16 400 MG Dronedarone 400 mg BID PO 11/23/24 22:00 11/26/24 10:15 400 MG Clonidine HCl 0.1 mg Q6HP PRN PO 11/23/24 16:15 11/24/24 12:09 0.1 MG Lorazepam 1 mg Q5MINP PRN IV 11/23/24 23:15 Aspirin 81 mg HS PO 11/25/24 22:00 11/25/24 22:46 81 MG Atorvastatin Calcium 20 mg HS PO 11/25/24 22:00 11/25/24 22:45 20 MG Lorazepam 1 mg ONCE PRN IV 11/25/24 21:30 laboratory and microbiology Laboratory Tests 11/24/24 06:29 Test 11/24/24 06:29 Range/Units Serum Glucose 85 74-106 mg/dL Assessment/Plan Patient is a 74-year-old gentleman who presented to the hospital with significant dizziness. He explains the dizziness as room spinning which was a lot and did not stop for few hours and he decided to come to the hospital. Denies any chest pain since yesterday. Is known to our practice from outside. Patient had a watchman device implanted in the middle of September 2024 ([facility]). Does have history of atrial fibrillation/paroxysmal AFib. He has not been on anticoagulation for awhile (history of SAH and brain AVM). He also has a [employer] pacemaker (last interrogated in early September 2024). Patient has had occasional chest discomforts (atypical). Cardiology is involved for cardiac aspects of care. Not in acute distress. Sitting in bed. No JVD. Mucosa is pink and wet. No carotid bruit. No goiter. Not using accessory muscles of breathing. Lungs are clear to auscultation. Cardiac: Regular, no thrill/gallop. Systolic murmur 2/6 in the apex is heard. Abdomen is soft. There is no gross mass/hepatomegaly. Extremities do not reveal edema. Dorsalis pedis is 2+ bilateral. 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 He did have Watchman device implanted in the middle of September 2024 (previously the Watchman could not be implanted in other facility). Nuclear stress test (performed in the office) of December 2022 revealed normal perfusion, ejection fraction of 64%. Echocardiogram of December 2022 (performed in the office) revealed ejection fraction of 60-65%, mild concentric left ventricular hypertrophy, moderate left atrial enlargement, mild right atrial enlargement, [id number] tricuspid regurgitation, trace AI/PI/MR and aortic root of 4 cm Echocardiogram (performed in [facility]) of August 2024 revealed mild concentric left ventricular hypertrophy, ejection fraction of 70%, grade 1 diastolic dysfunction, borderline right ventricular hypertrophy, severe left atrial enlargement and right ventricular systolic pressure of 37 mm Hg Creatinine: 1.53 - 1.26 Potassium: 4.1 - 4.3 Lactic acid: 1.2 BNP: 433.54 Troponin (high sensitive): 4 - 4 - 3 Chest x-ray revealed: IMPRESSION: 1. Bibasilar atelectasis MRI of brain revealed: IMPRESSION: Sulcal effacement of the left posterior parietal and occipital lobe could be cerebritis. EKG was poor quality. Repeat EKG revealed paced A and sensed V: non specific ST T changes Echocardiogram revealed: Left ventricle: Mild concentric left ventricular hypertrophy was seen. LVEF was around 60%. There was no gross wall motion abnormality. Abnormal relaxation of left ventricular diastolic function was seen. Right ventricle was mildly dilated with normal systolic function. Both atria were mildly dilated. Aortic valve was trileaflet. There was trace aortic insufficiency. There was no aortic stenosis. There was trace mitral and tricuspid regurgitation. There was trace pulmonary valve insufficiency. Right ventricular systolic pressure was assessed at 36 mm Hg. There was no pericardial effusion. Aortic root was mildly dilated at 4.1 cm. [employer] (pacemaker) interrogation: Battery voltage: 2.99 volts; Remaining battery capacity to XANDER: 78%; DDDR: 60/130; Capture threshold: A 0.75 volts@0.8 milliseconds/V1.0 volts@0.4 milliseconds; Lead impedance: A410/V510 Ohms; A pacing: >99%; V pacin.1%; AT/AF burden: 0%; Normal functioning pacemaker which is MRI conditional Patient is 74-year-old man who presented with vertigo and dizziness which lasted half a day prior to presentation. There has been no chest pain on the day of presentation. Presentation is not considered cardiac. Patient does have history of old CVA and brain AVM. Does have history of atrial fibrillation. Has not been on anticoagulation for repeated previous bleedings and significant AVM and also SAH. It is of note the patient did have Watchman device couple of months back. PM interrogation revealed normal functioning PM and also no episodes of AT/AF. Still feels occasional dizziness. MRI of brain questions cerebritis. Neurology wants MRI of brain with contrast. Vertigo Dizziness Coronary artery disease, status post CABG Status post pacemaker ([employer]) implantation Paroxysmal AFib Old history of CVA Hypertension Hyperlipidemia Seizure disorder Valvular heart disease JONY on CKD GERD Tremors Cerebritis as per MRI Cardiac suggestion for management: Manage on telemetry Follow-up electrolytes and kidney function tests and correct abnormalities Continue aspirin/Plavix Neurology follow-up Brain imaging as per Neurology Further evaluation and management depends on the above and clinical course A total of 55 minutes was spent reviewing the patient record, examining the patient, making a diagnostic and therapeutic plan, discussing this plan with medical personnel, following up on diagnostic studies and following the patient for clinical stability excluding any and all procedures. At least 50% of this time was spent in direct, [id number] contact. Thank you for allowing me to participate in this patient's care. Further recommendations will depend on patient's clinical course. Please do not hesitate to contact me if you have any questions or concerns. This medical document was created using electronic medical record system with [employer] computerized dictation system. Although this document has been carefully reviewed, there may still be some phonetic and typographical errors. These areas are purely typographical due to the imperfection of the software programs, and do not reflect any compromise in the patient's medical care. Plan discussed with: Patient, Other (nurse) LEXY LINDER MD Nov 26, 2024 11:53
--- NOTE | 2024-11-26 12:17 | DVHNC2 ---
Procedure - [facility] (pacemaker) interrogation: Battery voltage: 2.99 volts Remaining battery capacity to XANDER: 78% DDDR: 60/130 Capture threshold: A 0.75 volts@0.8 milliseconds/V1.0 volts@0.4 milliseconds Lead impedance: A410/V510 Ohms A pacing: >99% V pacin.1% AT/AF burden: 0% Normal functioning pacemaker which is MRI conditional LEXY LINDER MD Nov 26, 2024 12:17
[2024-11-26] MEDS: METOPROLOL SUCCINATE XL 50 MG TAB PO SCH (14:04)
--- NOTE | 2024-11-26 18:55 | DVHPN2 ---
Subjective MUCH BETTER TODAY. Walked without walker Reviewed: Care Plan, H&P, Labs, Medications, Previous Orders, Radiology, Other (Consultants) Changes from previous H/P or p: No Changes Objective Vitals Vital Signs Date Time Temp Pulse Resp B/P (MAP) Pulse Ox O2 Delivery O2 Flow Rate FiO2 11/26/24 16:53 97.5 63 16 141/88 (105) 97 97.5 11/26/24 08:00 Room Air* 0 21 Intake/Output Intake and Output 11/26/24 07:00 Intake Total 2740 ml Balance 2740 ml Intake Oral 2740 ml # Voids 7 # Bowel Movements 1 General Appearance: Alert, Oriented X3 HEENT: Atraumatic Lungs: Clear to auscultation Cardiovascular: Regular rate Medications Current Medications Medications Dose Ordered Sig/Iris Route Start Time Stop Time Status Last Admin Dose Admin Acetaminophen/ Hydrocodone Bitart 1 tab Q4HP PRN PO 11/23/24 15:15 11/25/24 23:51 1 TAB Ondansetron HCl 4 mg Q4HP PRN IV 11/23/24 15:15 11/26/24 11:45 4 MG Docusate Sodium 100 mg BIDPRN PRN PO 11/23/24 15:15 Acetaminophen 650 mg Q6HP PRN PO 11/23/24 15:15 Clopidogrel Bisulfate 75 mg DAILY PO 11/24/24 10:00 11/26/24 10:15 75 MG Ranolazine 500 mg BID PO 11/23/24 22:00 11/26/24 10:15 500 MG Pantoprazole Sodium 40 mg DAILY PO 11/24/24 10:00 11/26/24 10:16 40 MG Lamotrigine 400 mg BID PO 11/23/24 22:00 11/26/24 10:16 400 MG Dronedarone 400 mg BID PO 11/23/24 22:00 11/26/24 10:15 400 MG Clonidine HCl 0.1 mg Q6HP PRN PO 11/23/24 16:15 11/26/24 11:45 0.1 MG Lorazepam 1 mg Q5MINP PRN IV 11/23/24 23:15 Aspirin 81 mg HS PO 11/25/24 22:00 11/25/24 22:46 81 MG Atorvastatin Calcium 20 mg HS PO 11/25/24 22:00 11/25/24 22:45 20 MG Lorazepam 1 mg ONCE PRN IV 11/25/24 21:30 Metoprolol Succinate 50 mg TID PO 11/26/24 14:00 11/26/24 14:04 50 MG Laboratory Results Laboratory Tests 11/24/24 06:29 Urinalysis Test 11/23/24 11:46 Urine Color Yellow (Yellow) Urine Clarity Clear (Clear) Urine pH 6.5 (5.0-9.0) Urine Specific [place] 1.021 (1.001-1.035) Urine Protein Trace (Negative) H Urine Ketones Negative (Negative) Urine Blood Negative /uL (Negative) Urine Nitrite Negative (Negative) Urine Bilirubin Negative (Negative) Urine Urobilinogen Normal mg/dL (Negative) Urine Leukocyte Esterase Negative /uL (Negative) Urine RBC 1 /hpf (0 - 3) Urine Microscopic WBC 1 /HPF (0-3) Urine Squamous Epithelial Cells None seen /hpf (<5) Urine Bacteria None seen /hpf (None Seen) Urine Glucose Normal mg/dL (Normal) Microbiology Microbiology Date/Time Source Procedure Growth Status 11/23/24 18:30 Nose MRSA Screen - Final Complete Assessment/Plan Assessment/Plan Questionable cerebritis as indicated per MRI without IV contrast Paroxysmal AFib status post pacemaker Dizziness History of subdural hematoma/AVM History of CVA/ History of coronary artery disease and CABG Hypertension Dyslipidemia History of seizure Acute kidney injury atop chronic kidney disease Anemia/mild Plan: Continue current plan of care. Awaiting MRI with IV contrast as requested per Neurology Plan discussed with: Patient Date of Service: Nov 26, 2024 Billing Provider: RANDI CORLEY MD Common Visit Codes: [id number] INP/OBS CARE(HIGH) RANDI CORLEY MD Nov 26, 2024 18:55
--- NOTE | 2024-11-26 22:01 | DVHPN2 ---
Progress Note - Dictate Date Seen: Nov 26, 2024 Medical Necessity Reason Pt with a Central, PICC or Fol: No Subjective This is not a progress note Mr. Engle is a 74 years old gentleman with a history of hypertension, dyslipidemia, atrial fibrillation status post Watchman procedure, coronary artery disease, SAH, tremor, seizure, he came to the [facility] on 11/23/2024 with a chief company of dizziness. I have seen and examined the patient, I have talked to his nurse, and other medical staff, he is oriented x3, he has a lot of questions He reports no headache He had a spell of dizziness/spinning sensation earlier today when he was turning his head Reports from my office CT head, 05/22/16: 1. Loss of the normal darby-white matter differentiation in the right frontal lobe, left posterior parietal lobe and left occipital lobe with thickening of the cortical margin and underlying edema causing effacement of the sulci. MR head, 12/2019: Small SAH H over left parietal lobe MRI head, 12/29/19: 1. Small subarachnoid blood products suspected over the left parietal cortex posteriorly and possibly the right central sulcus MR brain 12/28/2021: Small SAH CT head, 08/18/2022: SAH of left parietal lobe CT head, comparison: 08/16/2022. 10/20/2022: Essentially unchanged, laminar hyperattenuation in the left parietal lobe similar to most recent prior exam with fullness of the left parietal lobe sulci and hypoattenuation, most likely representing dystrophic calcifications or cortical laminar necrosis sequelae of prior cerebral infarct MRI head, 08/22/22: Up to 4.2 cm localized area of increased FLAIR signal in right superior frontoparietal lobe centrum semiovale likely due to chronic ischemia infarct. CTA head, neck, 08/17/2022: Possible vascular malformation Urinalysis, 11/20/2024: Unremarkable CBC, 07/24/24: Unremarkable BUN/CR, 11/23/2024: 20/1.53 GFR, : 47 CT head, 05/22/2016: 1. Loss of the normal darby-white matter differentiation in the right frontal lobe, left posterior parietal lobe and left occipital lobe with thickening of the cortical margin and underlying edema causing effacement of the sulci. The appearance is highly concerning for a underlying malignancy with vasogenic edema. Ischemia is felt to be unlikely given the appearance and distribution. There is no associated mass effect or midline shift. Recommend obtaining MRI with gadolinium for further characterization. 2. No acute areas of intracranial hemorrhage or obvious acute territorial infarct. 3. Age related atrophy and small vessel ischemic change MR head, 11/25/2024: Sulcal effacement of the left posterior parietal and occipital lobe could be cerebritis. vital signs Vital Sign Date Time Temp Pulse Resp B/P (MAP) Pulse Ox O2 Delivery O2 Flow Rate FiO2 11/26/24 16:53 97.5 63 16 141/88 (105) 97 97.5 11/26/24 08:00 Room Air* 0 21 Total Intake and Output 11/25/24 11/25/24 11/26/24 15:00 23:00 07:00 Intake Total 120 ml 1020 ml 1600 ml Balance 120 ml 1020 ml 1600 ml medications Current Medications Medications Dose Ordered Sig/Iris Route Start Time Stop Time Status Last Admin Dose Admin Acetaminophen/ Hydrocodone Bitart 1 tab Q4HP PRN PO 11/23/24 15:15 11/25/24 23:51 1 TAB Ondansetron HCl 4 mg Q4HP PRN IV 11/23/24 15:15 11/26/24 11:45 4 MG Docusate Sodium 100 mg BIDPRN PRN PO 11/23/24 15:15 Acetaminophen 650 mg Q6HP PRN PO 11/23/24 15:15 Clopidogrel Bisulfate 75 mg DAILY PO 11/24/24 10:00 11/26/24 10:15 75 MG Ranolazine 500 mg BID PO 11/23/24 22:00 11/26/24 10:15 500 MG Pantoprazole Sodium 40 mg DAILY PO 11/24/24 10:00 11/26/24 10:16 40 MG Lamotrigine 400 mg BID PO 11/23/24 22:00 11/26/24 10:16 400 MG Dronedarone 400 mg BID PO 11/23/24 22:00 11/26/24 10:15 400 MG Clonidine HCl 0.1 mg Q6HP PRN PO 11/23/24 16:15 11/26/24 11:45 0.1 MG Lorazepam 1 mg Q5MINP PRN IV 11/23/24 23:15 Aspirin 81 mg HS PO 11/25/24 22:00 11/25/24 22:46 81 MG Atorvastatin Calcium 20 mg HS PO 11/25/24 22:00 11/25/24 22:45 20 MG Lorazepam 1 mg ONCE PRN IV 11/25/24 21:30 Metoprolol Succinate 50 mg TID PO 11/26/24 14:00 11/26/24 14:04 50 MG objective General: the patient is well developed and nourished. No acute distress. MENTAL STATUS: Subjective SPEECH, LANGUAGE, HIGHER CORTICAL FUNCTION: no aphasia or dysathria. CRANIAL NERVES: Pupils are equal, round and reactive. EOMs full and conjugate. No nystagmus. Facial sensation intact in all three divisions bilaterally. Mandibular strength intact. Facial muscles symmetrical and strength intact. SENSATION: Sensation to touch and pinprick is normal. MOTOR: Normal tone in the upper and lower extremity. Normal muscle bulk. No fasciculations. Postural tremor in both upper extremities. Muscle strength of the major groups in the extremities is 5/5. REFLEXES: Deep tendon reflexes are symmetrical. No pathological reflexes. CEREBELLAR/COORDINATION: Finger to nose is normal bilaterally. GAIT/STATION: Mildly unsteady laboratory and microbiology Laboratory Tests 11/24/24 06:29 Test 11/24/24 06:29 Range/Units Serum Glucose 85 74-106 mg/dL Problem List Dizziness, Likely benign paroxysmal positional vertigo, Rule out other etiology Chronic stroke Recurrent subarachnoid hemorrhage Atrial fibrillation, status post Watchman procedure Atrial fibrillation status post pacemaker insertion (2023) Reports grand mal seizure Essential tremors Cerebritis per MRI Assessment/Plan Monitoring Supportive treatment Telemetry EEG MR brain scan with contrast Lamotrigine 400 mg Bid Aspirin 81 mg daily, Plavix 75 mg daily, Lipitor 20 mg daily Ativan for seizure breakthrough Further address his essential tremor as outpatient More recommendation per clinical course This medical document was created using an electronic medical record system with [employer] dictation system. Although this document has been carefully reviewed, there may still be some phonetic and typographical errors. These areas are purely typographical due to imperfections of the software programs, and do not reflect any compromise in the patient's medical care. Plan discussed with: Other MICHAEL CHAPARRO MD Nov 26, 2024 22:01
--- NOTE | 2024-11-26 22:41 | DVHPN2 ---
Progress Note - Dictate Date Seen: Nov 26, 2024 Medical Necessity Reason Pt with a Central, PICC or Fol: No Subjective Mr. Engle is a 74 years old gentleman with a history of hypertension, dyslipidemia, atrial fibrillation status post Watchman procedure, coronary artery disease, SAH, tremor, seizure, he came to the [facility] on 11/23/2024 with a chief company of dizziness. I have seen and examined the patient because he wants to discussed with me. He still have lot of concerning questions, most are discussed previously Today he told him that he was seen by a [facility] neurologist before pandemic, after going through a lot tests, he was told that he did not have seizure He said he had dizziness, falling tendencies, he may falls if he bends over, he said these are consistent with Parkinson's disease He also mentioned he had some features of brain edema according to the reading material in his smart phone He reports no headache Reports from my office CT head, 05/22/16: 1. Loss of the normal darby-white matter differentiation in the right frontal lobe, left posterior parietal lobe and left occipital lobe with thickening of the cortical margin and underlying edema causing effacement of the sulci. MR head, 12/2019: Small SAH H over left parietal lobe MRI head, 12/29/19: 1. Small subarachnoid blood products suspected over the left parietal cortex posteriorly and possibly the right central sulcus MR brain 12/28/2021: Small SAH CT head, 08/18/2022: SAH of left parietal lobe CT head, comparison: 08/16/2022. 10/20/2022: Essentially unchanged, laminar hyperattenuation in the left parietal lobe similar to most recent prior exam with fullness of the left parietal lobe sulci and hypoattenuation, most likely representing dystrophic calcifications or cortical laminar necrosis sequelae of prior cerebral infarct MRI head, 08/22/22: Up to 4.2 cm localized area of increased FLAIR signal in right superior frontoparietal lobe centrum semiovale likely due to chronic ischemia infarct. CTA head, neck, 08/17/2022: Possible vascular malformation Urinalysis, 11/20/2024: Unremarkable CBC, 07/24/24: Unremarkable BUN/CR, 11/23/2024: 20/1.53 GFR, : 47 CT head, 05/22/2016: 1. Loss of the normal darby-white matter differentiation in the right frontal lobe, left posterior parietal lobe and left occipital lobe with thickening of the cortical margin and underlying edema causing effacement of the sulci. The appearance is highly concerning for a underlying malignancy with vasogenic edema. Ischemia is felt to be unlikely given the appearance and distribution. There is no associated mass effect or midline shift. Recommend obtaining MRI with gadolinium for further characterization. 2. No acute areas of intracranial hemorrhage or obvious acute territorial infarct. 3. Age related atrophy and small vessel ischemic change MR head, 11/25/2024: Sulcal effacement of the left posterior parietal and occipital lobe could be cerebritis. vital signs Vital Sign Date Time Temp Pulse Resp B/P (MAP) Pulse Ox O2 Delivery O2 Flow Rate FiO2 11/26/24 16:53 97.5 63 16 141/88 (105) 97 97.5 11/26/24 08:00 Room Air* 0 21 Total Intake and Output 11/25/24 11/25/24 11/26/24 15:00 23:00 07:00 Intake Total 120 ml 1020 ml 1600 ml Balance 120 ml 1020 ml 1600 ml medications Current Medications Medications Dose Ordered Sig/Iris Route Start Time Stop Time Status Last Admin Dose Admin Acetaminophen/ Hydrocodone Bitart 1 tab Q4HP PRN PO 11/23/24 15:15 11/25/24 23:51 1 TAB Ondansetron HCl 4 mg Q4HP PRN IV 11/23/24 15:15 11/26/24 11:45 4 MG Docusate Sodium 100 mg BIDPRN PRN PO 11/23/24 15:15 Acetaminophen 650 mg Q6HP PRN PO 11/23/24 15:15 Clopidogrel Bisulfate 75 mg DAILY PO 11/24/24 10:00 11/26/24 10:15 75 MG Ranolazine 500 mg BID PO 11/23/24 22:00 11/26/24 10:15 500 MG Pantoprazole Sodium 40 mg DAILY PO 11/24/24 10:00 11/26/24 10:16 40 MG Lamotrigine 400 mg BID PO 11/23/24 22:00 11/26/24 10:16 400 MG Dronedarone 400 mg BID PO 11/23/24 22:00 11/26/24 10:15 400 MG Clonidine HCl 0.1 mg Q6HP PRN PO 11/23/24 16:15 11/26/24 11:45 0.1 MG Lorazepam 1 mg Q5MINP PRN IV 11/23/24 23:15 Aspirin 81 mg HS PO 11/25/24 22:00 11/25/24 22:46 81 MG Atorvastatin Calcium 20 mg HS PO 11/25/24 22:00 11/25/24 22:45 20 MG Lorazepam 1 mg ONCE PRN IV 11/25/24 21:30 Metoprolol Succinate 50 mg TID PO 11/26/24 14:00 11/26/24 14:04 50 MG objective General: the patient is well developed and nourished. No acute distress. MENTAL STATUS: Subjective SPEECH, LANGUAGE, HIGHER CORTICAL FUNCTION: no aphasia or dysathria. CRANIAL NERVES: Pupils are equal, round and reactive. EOMs full and conjugate. No nystagmus. Facial sensation intact in all three divisions bilaterally. Mandibular strength intact. Facial muscles symmetrical and strength intact. SENSATION: Sensation to touch and pinprick is normal. MOTOR: Normal tone in the upper and lower extremity. Normal muscle bulk. No fasciculations. Postural tremor in both upper extremities. Muscle strength of the major groups in the extremities is 5/5. REFLEXES: Deep tendon reflexes are symmetrical. No pathological reflexes. CEREBELLAR/COORDINATION: Finger to nose is normal bilaterally. GAIT/STATION: Mildly unsteady laboratory and microbiology Laboratory Tests 11/24/24 06:29 Test 11/24/24 06:29 Range/Units Serum Glucose 85 74-106 mg/dL Problem List Dizziness, Likely benign paroxysmal positional vertigo, Rule out other etiology Chronic stroke Recurrent subarachnoid hemorrhage Atrial fibrillation, status post Watchman procedure Atrial fibrillation status post pacemaker insertion (2023) Reported grand mal seizure (on 11/26/2024, he said see diagnosis of seizure was not confirmed by his [facility] neurologist) Essential tremors Brain edema to rule out Cerebritis (per MRI) Assessment/Plan Monitoring Supportive treatment Telemetry EEG MR brain scan with contrast Lamotrigine 400 mg Bid Aspirin 81 mg daily, Plavix 75 mg daily, Lipitor 20 mg daily Ativan for seizure breakthrough Further address his essential tremor as outpatient More recommendation per clinical course This medical document was created using an electronic medical record system with [employer] dictation system. Although this document has been carefully reviewed, there may still be some phonetic and typographical errors. These areas are purely typographical due to imperfections of the software programs, and do not reflect any compromise in the patient's medical care. Prognosis poor Plan discussed with: Patient, Other Total Time (mins): 40 MICHAEL CHAPARRO MD Nov 26, 2024 22:41
[2024-11-27] VITALS (8 sets, daily range): BP systolic 107–146; BP diastolic 67–84; PULSE 60–62; RESP 16–18; TEMP 97.5–98.6; O2SAT 93–98
[2024-11-27] MEDS: lamoTRIgine 100 MG TAB ONE ×2 (00:11→00:12)
--- NOTE | 2024-11-27 08:28 | DVHPN2 ---
Progress Note - Dictate Date Seen: Nov 27, 2024 Medical Necessity Reason Pt with a Central, PICC or Fol: No vital signs Vital Sign Date Time Temp Pulse Resp B/P (MAP) Pulse Ox O2 Delivery O2 Flow Rate FiO2 11/27/24 05:42 60 146/84 11/27/24 04:04 98.1 16 93 98.1 11/26/24 20:00 Room Air* 0 21 Total Intake and Output 11/26/24 11/26/24 11/27/24 15:00 23:00 07:00 Intake Total 800 ml 1200 ml Output Total 4 ml Balance 796 ml 1200 ml medications Current Medications Medications Dose Ordered Sig/Iris Route Start Time Stop Time Status Last Admin Dose Admin Acetaminophen/ Hydrocodone Bitart 1 tab Q4HP PRN PO 11/23/24 15:15 11/25/24 23:51 1 TAB Ondansetron HCl 4 mg Q4HP PRN IV 11/23/24 15:15 11/26/24 11:45 4 MG Docusate Sodium 100 mg BIDPRN PRN PO 11/23/24 15:15 Acetaminophen 650 mg Q6HP PRN PO 11/23/24 15:15 Clopidogrel Bisulfate 75 mg DAILY PO 11/24/24 10:00 11/26/24 10:15 75 MG Ranolazine 500 mg BID PO 11/23/24 22:00 11/26/24 23:52 500 MG Pantoprazole Sodium 40 mg DAILY PO 11/24/24 10:00 11/26/24 10:16 40 MG Lamotrigine 400 mg BID PO 11/23/24 22:00 11/27/24 00:06 400 MG Dronedarone 400 mg BID PO 11/23/24 22:00 11/26/24 22:32 400 MG Clonidine HCl 0.1 mg Q6HP PRN PO 11/23/24 16:15 11/26/24 11:45 0.1 MG Lorazepam 1 mg Q5MINP PRN IV 11/23/24 23:15 Aspirin 81 mg HS PO 11/25/24 22:00 11/26/24 22:33 81 MG Atorvastatin Calcium 20 mg HS PO 11/25/24 22:00 11/26/24 22:32 20 MG Lorazepam 1 mg ONCE PRN IV 11/25/24 21:30 Metoprolol Succinate 50 mg TID PO 11/26/24 14:00 11/27/24 05:42 50 MG laboratory and microbiology Laboratory Tests 11/24/24 06:29 Test 11/24/24 06:29 Range/Units Serum Glucose 85 74-106 mg/dL Assessment/Plan Patient is a 74-year-old gentleman who presented to the hospital with significant dizziness. He explains the dizziness as room spinning which was a lot and did not stop for few hours and he decided to come to the hospital. Denies any chest pain since yesterday. Is known to our practice from outside. Patient had a watchman device implanted in the middle of September 2024 ([facility]). Does have history of atrial fibrillation/paroxysmal AFib. He has not been on anticoagulation for awhile (history of SAH and brain AVM). He also has a [employer] pacemaker (last interrogated in early September 2024). Patient has had occasional chest discomforts (atypical). Cardiology is involved for cardiac aspects of care. Not in acute distress. Sitting in bed. No JVD. Mucosa is pink and wet. No carotid bruit. No goiter. Not using accessory muscles of breathing. Lungs are clear to auscultation. Cardiac: Regular, no thrill/gallop. Systolic murmur 2/6 in the apex is heard. Abdomen is soft. There is no gross mass/hepatomegaly. Extremities do not reveal edema. Dorsalis pedis is 2+ bilateral. 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 He did have Watchman device implanted in the middle of September 2024 (previously the Watchman could not be implanted in other facility). Nuclear stress test (performed in the office) of December 2022 revealed normal perfusion, ejection fraction of 64%. Echocardiogram of December 2022 (performed in the office) revealed ejection fraction of 60-65%, mild concentric left ventricular hypertrophy, moderate left atrial enlargement, mild right atrial enlargement, [id number] tricuspid regurgitation, trace AI/PI/MR and aortic root of 4 cm Echocardiogram (performed in [facility]) of August 2024 revealed mild concentric left ventricular hypertrophy, ejection fraction of 70%, grade 1 diastolic dysfunction, borderline right ventricular hypertrophy, severe left atrial enlargement and right ventricular systolic pressure of 37 mm Hg Creatinine: 1.53 - 1.26 Potassium: 4.1 - 4.3 Lactic acid: 1.2 BNP: 433.54 Troponin (high sensitive): 4 - 4 - 3 Chest x-ray revealed: IMPRESSION: 1. Bibasilar atelectasis MRI of brain revealed: IMPRESSION: Sulcal effacement of the left posterior parietal and occipital lobe could be cerebritis. EKG was poor quality. Repeat EKG revealed paced A and sensed V: non specific ST T changes Echocardiogram revealed: Left ventricle: Mild concentric left ventricular hypertrophy was seen. LVEF was around 60%. There was no gross wall motion abnormality. Abnormal relaxation of left ventricular diastolic function was seen. Right ventricle was mildly dilated with normal systolic function. Both atria were mildly dilated. Aortic valve was trileaflet. There was trace aortic insufficiency. There was no aortic stenosis. There was trace mitral and tricuspid regurgitation. There was trace pulmonary valve insufficiency. Right ventricular systolic pressure was assessed at 36 mm Hg. There was no pericardial effusion. Aortic root was mildly dilated at 4.1 cm. [employer] (pacemaker) interrogation: Battery voltage: 2.99 volts; Remaining battery capacity to XANDER: 78%; DDDR: 60/130; Capture threshold: A 0.75 volts@0.8 milliseconds/V1.0 volts@0.4 milliseconds; Lead impedance: A410/V510 Ohms; A pacing: >99%; V pacin.1%; AT/AF burden: 0%; Normal functioning pacemaker which is MRI conditional Patient is 74-year-old man who presented with vertigo and dizziness which lasted half a day prior to presentation. There has been no chest pain on the day of presentation. Presentation is not considered cardiac. Patient does have history of old CVA and brain AVM. Does have history of atrial fibrillation. Has not been on anticoagulation for repeated previous bleedings and significant AVM and also SAH. It is of note the patient did have Watchman device couple of months back. PM interrogation revealed normal functioning PM and also no episodes of AT/AF. Still feels occasional dizziness. MRI of brain questions cerebritis. Neurology wants MRI of brain with contrast. Vertigo Dizziness Coronary artery disease, status post CABG Status post pacemaker ([employer]) implantation Paroxysmal AFib Old history of CVA Hypertension Hyperlipidemia Seizure disorder Valvular heart disease JONY on CKD GERD Tremors Cerebritis as per MRI Cardiac suggestion for management: Manage on telemetry Follow-up electrolytes and kidney function tests and correct abnormalities Continue aspirin/Plavix Neurology follow-up Brain imaging as per Neurology Further evaluation and management depends on the above and clinical course A total of 55 minutes was spent reviewing the patient record, examining the patient, making a diagnostic and therapeutic plan, discussing this plan with medical personnel, following up on diagnostic studies and following the patient for clinical stability excluding any and all procedures. At least 50% of this time was spent in direct, [id number] contact. Thank you for allowing me to participate in this patient's care. Further recommendations will depend on patient's clinical course. Please do not hesitate to contact me if you have any questions or concerns. This medical document was created using electronic medical record system with [employer] computerized dictation system. Although this document has been carefully reviewed, there may still be some phonetic and typographical errors. These areas are purely typographical due to the imperfection of the software programs, and do not reflect any compromise in the patient's medical care. Plan discussed with: Patient, Other (nurse) LEXY LINDER MD Nov 27, 2024 08:28
--- NOTE | 2024-11-27 16:07 | DVH ---
Procedure: US Rt Upper DVT Study Date and Requested Time: 11/27/2024 03:38 PM History: Redness, swelling, pain, and warmth to right upper extremity Comparison: None Technique: Multiple high resolution grayscale images with and without compression obtained of the rig ht upper extremity veins, including the internal jugular, subclavian, axillary, brachial, radial, and ulnar veins. Augmentation performed as indicated. Color and spectral doppler flow images obtained as indicated. Findings: No visible intraluminal venous thrombus. No evidence of incompressibility or abnormal color or spectr al Doppler flow visualized in the right upper extremity veins including the internal jugular, subclav brendan, axillary, brachial, radial, and ulnar veins. There is incompressibility of the right antecubital vein which is a superficial vein connecting the c ephalic and basilic veins. The cephalic and basilic veins are patent. Impression: No sonographic evidence of right upper extremity deep venous thrombosis. There is incompressibility off the right antecubital vein consistent with superficial vein thrombosis .
--- NOTE | 2024-11-27 16:51 | DVHPN2 ---
Subjective Right upper extremity IV infiltration. Reviewed: Care Plan, H&P, Labs, Medications, Previous Orders, Radiology, Other (Consultants) Changes from previous H/P or p: No Changes Objective Vitals Vital Signs Date Time Temp Pulse Resp B/P (MAP) Pulse Ox O2 Delivery O2 Flow Rate FiO2 11/27/24 16:37 97.5 60 18 126/80 (95) 96 97.5 11/27/24 08:00 Room Air* 0 21 Intake/Output Intake and Output 11/27/24 07:00 Intake Total 2000 ml Output Total 4 ml Balance 1996 ml Intake Oral 2000 ml Output Urine Total 4 ml # Voids 7 General Appearance: Alert, Oriented X3 HEENT: Atraumatic Lungs: Clear to auscultation Cardiovascular: Regular rate Extremities: Other (Some redness in the antecubital area on the right side and slightly above with some warmth) Medications Current Medications Medications Dose Ordered Sig/Iris Route Start Time Stop Time Status Last Admin Dose Admin Acetaminophen/ Hydrocodone Bitart 1 tab Q4HP PRN PO 11/23/24 15:15 11/25/24 23:51 1 TAB Ondansetron HCl 4 mg Q4HP PRN IV 11/23/24 15:15 11/26/24 11:45 4 MG Docusate Sodium 100 mg BIDPRN PRN PO 11/23/24 15:15 Acetaminophen 650 mg Q6HP PRN PO 11/23/24 15:15 Clopidogrel Bisulfate 75 mg DAILY PO 11/24/24 10:00 11/27/24 10:40 75 MG Ranolazine 500 mg BID PO 11/23/24 22:00 11/27/24 10:39 500 MG Pantoprazole Sodium 40 mg DAILY PO 11/24/24 10:00 11/27/24 10:40 40 MG Lamotrigine 400 mg BID PO 11/23/24 22:00 11/27/24 11:32 400 MG Dronedarone 400 mg BID PO 11/23/24 22:00 11/27/24 10:39 400 MG Clonidine HCl 0.1 mg Q6HP PRN PO 11/23/24 16:15 11/26/24 11:45 0.1 MG Lorazepam 1 mg Q5MINP PRN IV 11/23/24 23:15 Aspirin 81 mg HS PO 11/25/24 22:00 11/26/24 22:33 81 MG Atorvastatin Calcium 20 mg HS PO 11/25/24 22:00 11/26/24 22:32 20 MG Lorazepam 1 mg ONCE PRN IV 11/25/24 21:30 Metoprolol Succinate 50 mg TID PO 11/26/24 14:00 11/27/24 15:33 50 MG Laboratory Results Laboratory Tests 11/24/24 06:29 Urinalysis Test 11/23/24 11:46 Urine Color Yellow (Yellow) Urine Clarity Clear (Clear) Urine pH 6.5 (5.0-9.0) Urine Specific [place] 1.021 (1.001-1.035) Urine Protein Trace (Negative) H Urine Ketones Negative (Negative) Urine Blood Negative /uL (Negative) Urine Nitrite Negative (Negative) Urine Bilirubin Negative (Negative) Urine Urobilinogen Normal mg/dL (Negative) Urine Leukocyte Esterase Negative /uL (Negative) Urine RBC 1 /hpf (0 - 3) Urine Microscopic WBC 1 /HPF (0-3) Urine Squamous Epithelial Cells None seen /hpf (<5) Urine Bacteria None seen /hpf (None Seen) Urine Glucose Normal mg/dL (Normal) Microbiology Microbiology Date/Time Source Procedure Growth Status 11/23/24 18:30 Nose MRSA Screen - Final Complete Assessment/Plan Assessment/Plan Questionable cerebritis as indicated per MRI without IV contrast Paroxysmal AFib status post pacemaker Dizziness History of subdural hematoma/AVM History of CVA/ History of coronary artery disease and CABG Hypertension Dyslipidemia History of seizure Acute kidney injury atop chronic kidney disease Anemia/mild Plan: Rule out DVT in the right upper extremity status post IV infiltration. Still awaiting MRI with IV contrast as radiology cleared the procedure but unable to do MRI today due to technical issues. Addendum: Ultrasound showed no DVT and right upper extremity. There is superficial phlebitis. We will increase the aspirin dose for the superficial phlebitis and we will add cephalexin for possible mild subcutaneous cellulitis. Monitor for fever. If temperature spikes then we will have to switch to more aggressive antibiotics Plan discussed with: Patient My Orders Orders - RANDI CORLEY MD Procedure Category Date Status Time Rt Upper Dvt US 11/27/24 Resulted 14:28 Date of Service: Nov 27, 2024 Billing Provider: RANDI CORLEY MD Common Visit Codes: [id number] INP/OBS CARE(HIGH) RANDI CORLEY MD Nov 27, 2024 16:51
[2024-11-27] MEDS ORDERED: ASPirin-EC 81 mg tab PO SCH (17:00)
[2024-11-27] MEDS: CEPHALEXIN 250 MG CAP PO SCH (19:55)
[2024-11-27] MEDS: ASPirin-EC 325mg tab PO SCH (21:54)
[2024-11-28] VITALS (9 sets, daily range): BP systolic 119–164; BP diastolic 68–103; PULSE 55–65; RESP 16–18; TEMP 97.3–98; O2SAT 96–99
--- NOTE | 2024-11-28 08:27 | DVHPN2 ---
Progress Note - Dictate Date Seen: Nov 28, 2024 Medical Necessity Reason Pt with a Central, PICC or Fol: No vital signs Vital Sign Date Time Temp Pulse Resp B/P (MAP) Pulse Ox O2 Delivery O2 Flow Rate FiO2 11/28/24 05:55 55 128/72 11/28/24 05:00 97.5 18 96 97.5 11/27/24 20:00 Room Air* 0 21 Total Intake and Output 11/27/24 11/27/24 11/28/24 15:00 23:00 07:00 Intake Total 120 ml 620 ml 100 ml Balance 120 ml 620 ml 100 ml medications Current Medications Medications Dose Ordered Sig/Iris Route Start Time Stop Time Status Last Admin Dose Admin Acetaminophen/ Hydrocodone Bitart 1 tab Q4HP PRN PO 11/23/24 15:15 11/25/24 23:51 1 TAB Ondansetron HCl 4 mg Q4HP PRN IV 11/23/24 15:15 11/26/24 11:45 4 MG Docusate Sodium 100 mg BIDPRN PRN PO 11/23/24 15:15 Acetaminophen 650 mg Q6HP PRN PO 11/23/24 15:15 Clopidogrel Bisulfate 75 mg DAILY PO 11/24/24 10:00 11/27/24 10:40 75 MG Ranolazine 500 mg BID PO 11/23/24 22:00 11/27/24 21:51 500 MG Pantoprazole Sodium 40 mg DAILY PO 11/24/24 10:00 11/27/24 10:40 40 MG Lamotrigine 400 mg BID PO 11/23/24 22:00 11/27/24 21:51 400 MG Dronedarone 400 mg BID PO 11/23/24 22:00 11/27/24 21:51 400 MG Clonidine HCl 0.1 mg Q6HP PRN PO 11/23/24 16:15 11/26/24 11:45 0.1 MG Lorazepam 1 mg Q5MINP PRN IV 11/23/24 23:15 Atorvastatin Calcium 20 mg HS PO 11/25/24 22:00 11/27/24 21:53 20 MG Lorazepam 1 mg ONCE PRN IV 11/25/24 21:30 Metoprolol Succinate 50 mg TID PO 11/26/24 14:00 11/27/24 21:53 50 MG Cephalexin 250 mg Q6HR PO 11/27/24 18:00 11/28/24 05:52 250 MG Aspirin 325 mg BID PO 11/27/24 22:00 11/27/24 21:54 325 MG laboratory and microbiology Laboratory Tests 11/24/24 06:29 Test 11/24/24 06:29 Range/Units Serum Glucose 85 74-106 mg/dL Assessment/Plan Patient is a 74-year-old gentleman who presented to the hospital with significant dizziness. He explains the dizziness as room spinning which was a lot and did not stop for few hours and he decided to come to the hospital. Denies any chest pain since yesterday. Is known to our practice from outside. Patient had a watchman device implanted in the middle of September 2024 ([facility]). Does have history of atrial fibrillation/paroxysmal AFib. He has not been on anticoagulation for awhile (history of SAH and brain AVM). He also has a [employer] pacemaker (last interrogated in early September 2024). Patient has had occasional chest discomforts (atypical). Cardiology is involved for cardiac aspects of care. Not in acute distress. Sitting in bed. No JVD. Mucosa is pink and wet. No carotid bruit. No goiter. Not using accessory muscles of breathing. Lungs are clear to auscultation. Cardiac: Regular, no thrill/gallop. Systolic murmur 2/6 in the apex is heard. Abdomen is soft. There is no gross mass/hepatomegaly. Extremities do not reveal edema. Dorsalis pedis is 2+ bilateral. 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 He did have Watchman device implanted in the middle of September 2024 (previously the Watchman could not be implanted in other facility). Nuclear stress test (performed in the office) of December 2022 revealed normal perfusion, ejection fraction of 64%. Echocardiogram of December 2022 (performed in the office) revealed ejection fraction of 60-65%, mild concentric left ventricular hypertrophy, moderate left atrial enlargement, mild right atrial enlargement, [id number] tricuspid regurgitation, trace AI/PI/MR and aortic root of 4 cm Echocardiogram (performed in [facility]) of August 2024 revealed mild concentric left ventricular hypertrophy, ejection fraction of 70%, grade 1 diastolic dysfunction, borderline right ventricular hypertrophy, severe left atrial enlargement and right ventricular systolic pressure of 37 mm Hg Creatinine: 1.53 - 1.26 Potassium: 4.1 - 4.3 Lactic acid: 1.2 BNP: 433.54 Troponin (high sensitive): 4 - 4 - 3 Chest x-ray revealed: IMPRESSION: 1. Bibasilar atelectasis MRI of brain revealed: IMPRESSION: Sulcal effacement of the left posterior parietal and occipital lobe could be cerebritis. Venous duplex of right upper ext revealed: No sonographic evidence of right upper extremity deep venous thrombosis. There is incompressibility off the right antecubital vein consistent with superficial vein thrombosis. EKG was poor quality. Repeat EKG revealed paced A and sensed V: non specific ST T changes Echocardiogram revealed: Left ventricle: Mild concentric left ventricular hypertrophy was seen. LVEF was around 60%. There was no gross wall motion abnormality. Abnormal relaxation of left ventricular diastolic function was seen. Right ventricle was mildly dilated with normal systolic function. Both atria were mildly dilated. Aortic valve was trileaflet. There was trace aortic insufficiency. There was no aortic stenosis. There was trace mitral and tricuspid regurgitation. There was trace pulmonary valve insufficiency. Right ventricular systolic pressure was assessed at 36 mm Hg. There was no pericardial effusion. Aortic root was mildly dilated at 4.1 cm. [facility] (pacemaker) interrogation: Battery voltage: 2.99 volts; Remaining battery capacity to XANDER: 78%; DDDR: 60/130; Capture threshold: A 0.75 volts@0.8 milliseconds/V1.0 volts@0.4 milliseconds; Lead impedance: A410/V510 Ohms; A pacing: >99%; V pacin.1%; AT/AF burden: 0%; Normal functioning pacemaker which is MRI conditional Patient is 74-year-old man who presented with vertigo and dizziness which lasted half a day prior to presentation. There has been no chest pain on the day of presentation. Presentation is not considered cardiac. Patient does have history of old CVA and brain AVM. Does have history of atrial fibrillation. Has not been on anticoagulation for repeated previous bleedings and significant AVM and also SAH. It is of note the patient did have Watchman device couple of months back. PM interrogation revealed normal functioning PM and also no episodes of AT/AF. Still feels occasional dizziness. MRI of brain questions cerebritis. Neurology wants MRI of brain with contrast. Vertigo Dizziness Coronary artery disease, status post CABG Status post pacemaker ([employer]) implantation Paroxysmal AFib Old history of CVA Hypertension Hyperlipidemia Seizure disorder Valvular heart disease JONY on CKD GERD Tremors Cerebritis as per MRI Cardiac suggestion for management: Manage on telemetry Follow-up electrolytes and kidney function tests and correct abnormalities Continue aspirin/Plavix Neurology follow-up Brain imaging as per Neurology Further evaluation and management depends on the above and clinical course A total of 55 minutes was spent reviewing the patient record, examining the patient, making a diagnostic and therapeutic plan, discussing this plan with medical personnel, following up on diagnostic studies and following the patient for clinical stability excluding any and all procedures. At least 50% of this time was spent in direct, [id number] contact. Thank you for allowing me to participate in this patient's care. Further recommendations will depend on patient's clinical course. Please do not hesitate to contact me if you have any questions or concerns. This medical document was created using electronic medical record system with [employer] computerized dictation system. Although this document has been carefully reviewed, there may still be some phonetic and typographical errors. These areas are purely typographical due to the imperfection of the software programs, and do not reflect any compromise in the patient's medical care. Dietary Evaluation Review Comments: 1) Continue cardiac diet 2) Encourage optimal PO intake 3) Follow-up with cardiology, neurology, and nephrology 4) Continue to monitor I&O, labs, and skin integrity Expected Outcomes/Goals: 1) appetite and labs to improve 2) f/u in 3-5 days Plan discussed with: Patient, Other (nurse) LEXY LINDER MD Nov 28, 2024 08:27
--- NOTE | 2024-11-28 09:05 | DVHPN2 ---
Progress Note - Dictate Date Seen: Nov 28, 2024 Medical Necessity Reason Pt with a Central, PICC or Fol: No Subjective Mr. Engle is a 74 years old gentleman with a history of hypertension, dyslipidemia, atrial fibrillation status post Watchman procedure, coronary artery disease, SAH, tremor, seizure, he came to the [facility] on 11/23/[facility]24 with a chief company of dizziness. I have seen and examined the patient, I have talked to his nurse, he is doing fine, alert and fully oriented, he is reason in the bed, he reports no headache MRI with contrast head scan is pending Reports from my office CT head, 05/22/16: 1. Loss of the normal darby-white matter differentiation in the right frontal lobe, left posterior parietal lobe and left occipital lobe with thickening of the cortical margin and underlying edema causing effacement of the sulci. MR head, 12/2019: Small SAH H over left parietal lobe MRI head, 12/29/19: 1. Small subarachnoid blood products suspected over the left parietal cortex posteriorly and possibly the right central sulcus MR brain 12/28/2021: Small SAH CT head, 08/18/2022: SAH of left parietal lobe CT head, comparison: 08/16/2022. 10/20/2022: Essentially unchanged, laminar hyperattenuation in the left parietal lobe similar to most recent prior exam with fullness of the left parietal lobe sulci and hypoattenuation, most likely representing dystrophic calcifications or cortical laminar necrosis sequelae of prior cerebral infarct MRI head, 08/22/22: Up to 4.2 cm localized area of increased FLAIR signal in right superior frontoparietal lobe centrum semiovale likely due to chronic ischemia infarct. CTA head, neck, 08/17/2022: Possible vascular malformation Urinalysis, 11/20/2024: Unremarkable CBC, 07/24/24: Unremarkable BUN/CR, 11/23/2024: 20/1.53 GFR, : 47 CT head, 05/22/2016: 1. Loss of the normal darby-white matter differentiation in the right frontal lobe, left posterior parietal lobe and left occipital lobe with thickening of the cortical margin and underlying edema causing effacement of the sulci. The appearance is highly concerning for a underlying malignancy with vasogenic edema. Ischemia is felt to be unlikely given the appearance and distribution. There is no associated mass effect or midline shift. Recommend obtaining MRI with gadolinium for further characterization. 2. No acute areas of intracranial hemorrhage or obvious acute territorial infarct. 3. Age related atrophy and small vessel ischemic change MR head, 11/25/2024: Sulcal effacement of the left posterior parietal and occipital lobe could be cerebritis. vital signs Vital Sign Date Time Temp Pulse Resp B/P (MAP) Pulse Ox O2 Delivery O2 Flow Rate FiO2 11/28/24 05:55 55 128/72 11/28/24 05:00 97.5 18 96 97.5 11/27/24 20:00 Room Air* 0 21 Total Intake and Output 11/27/24 11/27/24 11/28/24 15:00 23:00 07:00 Intake Total 120 ml 620 ml 100 ml Balance 120 ml 620 ml 100 ml medications Current Medications Medications Dose Ordered Sig/Iris Route Start Time Stop Time Status Last Admin Dose Admin Acetaminophen/ Hydrocodone Bitart 1 tab Q4HP PRN PO 11/23/24 15:15 11/25/24 23:51 1 TAB Ondansetron HCl 4 mg Q4HP PRN IV 11/23/24 15:15 11/26/24 11:45 4 MG Docusate Sodium 100 mg BIDPRN PRN PO 11/23/24 15:15 Acetaminophen 650 mg Q6HP PRN PO 11/23/24 15:15 Clopidogrel Bisulfate 75 mg DAILY PO 11/24/24 10:00 11/27/24 10:40 75 MG Ranolazine 500 mg BID PO 11/23/24 22:00 11/27/24 21:51 500 MG Pantoprazole Sodium 40 mg DAILY PO 11/24/24 10:00 11/27/24 10:40 40 MG Lamotrigine 400 mg BID PO 11/23/24 22:00 11/27/24 21:51 400 MG Dronedarone 400 mg BID PO 11/23/24 22:00 11/27/24 21:51 400 MG Clonidine HCl 0.1 mg Q6HP PRN PO 11/23/24 16:15 11/26/24 11:45 0.1 MG Lorazepam 1 mg Q5MINP PRN IV 11/23/24 23:15 Atorvastatin Calcium 20 mg HS PO 11/25/24 22:00 11/27/24 21:53 20 MG Lorazepam 1 mg ONCE PRN IV 11/25/24 21:30 Metoprolol Succinate 50 mg TID PO 11/26/24 14:00 11/27/24 21:53 50 MG Cephalexin 250 mg Q6HR PO 11/27/24 18:00 11/28/24 05:52 250 MG Aspirin 325 mg BID PO 11/27/24 22:00 11/27/24 21:54 325 MG objective General: the patient is well developed and nourished. No acute distress. MENTAL STATUS: Subjective SPEECH, LANGUAGE, HIGHER CORTICAL FUNCTION: no aphasia or dysathria. CRANIAL NERVES: Pupils are equal, round and reactive. EOMs full and conjugate. No nystagmus. Facial sensation intact in all three divisions bilaterally. Mandibular strength intact. Facial muscles symmetrical and strength intact. SENSATION: Sensation to touch and pinprick is normal. MOTOR: Normal tone in the upper and lower extremity. Normal muscle bulk. No fasciculations. Postural tremor in both upper extremities. Muscle strength of the major groups in the extremities is 5/5. REFLEXES: Deep tendon reflexes are symmetrical. No pathological reflexes. CEREBELLAR/COORDINATION: Finger to nose is normal bilaterally. GAIT/STATION: Mildly unsteady laboratory and microbiology Laboratory Tests 11/24/24 06:29 Test 11/24/24 06:29 Range/Units Serum Glucose 85 74-106 mg/dL Problem List Dizziness, Likely benign paroxysmal positional vertigo, Rule out other etiology Chronic stroke Recurrent subarachnoid hemorrhage Atrial fibrillation, status post Watchman procedure Atrial fibrillation status post pacemaker insertion (2023) Reported grand mal seizure (on 11/26/2024, he said see diagnosis of seizure was not confirmed by his [facility] neurologist) Essential tremors Brain edema to rule out Cerebritis (per MRI) Assessment/Plan Monitoring Supportive treatment Telemetry EEG MR brain scan with contrast Lamotrigine 400 mg Bid Aspirin 81 mg daily, Plavix 75 mg daily, Lipitor 20 mg daily Ativan for seizure breakthrough Further address his essential tremor as outpatient More recommendation per clinical course This medical document was created using an electronic medical record system with [employer] system. Although this document has been carefully reviewed, there may still be some phonetic and typographical errors. These areas are purely typographical due to imperfections of the software programs, and do not reflect any compromise in the patient's medical care. Prognosis poor Dietary Evaluation Review Comments: 1) Continue cardiac diet 2) Encourage optimal PO intake 3) Follow-up with cardiology, neurology, and nephrology 4) Continue to monitor I&O, labs, and skin integrity Expected Outcomes/Goals: 1) appetite and labs to improve 2) f/u in 3-5 days Plan discussed with: Patient, Other MICHAEL CHAPARRO MD Nov 28, 2024 09:05
[2024-11-28] MEDS: cefTRIAXone 1GM/50ML D5W 50 ML IV ONE (15:00)
--- NOTE | 2024-11-28 19:42 | DVHPNRES ---
Progress Note Date Seen: Nov 28, 2024 Resident Creating Document: JANNET ABBOTT RESIDENT Medical Necessity Reason Pt with a Central, PICC or Fol: No Subjective Review of Systems A74 years old gentleman with a history of hypertension, dyslipidemia, paroxysmal atrial fibrillation status post Watchman procedure, coronary artery disease, SAH, tremor, seizure, he came to the [facility] on 11/23/2024 with a chief company of dizziness. Patient seen and examined at bedside No mention of any dizziness Objective vital signs Vital Sign Date Time Temp Pulse Resp B/P (MAP) Pulse Ox O2 Delivery O2 Flow Rate FiO2 11/28/24 17:15 59 137/86 (103) 11/28/24 16:30 97.3 17 99 97.3 11/28/24 08:00 Room Air* 0 21 Total Intake and Output 11/27/24 11/27/24 11/28/24 15:00 23:00 07:00 Intake Total 120 ml 620 ml 100 ml Balance 120 ml 620 ml 100 ml medications Current Medications Medications Dose Ordered Sig/Iris Route Start Time Stop Time Status Last Admin Dose Admin Acetaminophen/ Hydrocodone Bitart 1 tab Q4HP PRN PO 11/23/24 15:15 11/25/24 23:51 1 TAB Ondansetron HCl 4 mg Q4HP PRN IV 11/23/24 15:15 11/26/24 11:45 4 MG Docusate Sodium 100 mg BIDPRN PRN PO 11/23/24 15:15 Acetaminophen 650 mg Q6HP PRN PO 11/23/24 15:15 Clopidogrel Bisulfate 75 mg DAILY PO 11/24/24 10:00 11/28/24 10:09 75 MG Ranolazine 500 mg BID PO 11/23/24 22:00 11/28/24 10:11 500 MG Pantoprazole Sodium 40 mg DAILY PO 11/24/24 10:00 11/28/24 10:11 40 MG Lamotrigine 400 mg BID PO 11/23/24 22:00 11/28/24 10:10 400 MG Dronedarone 400 mg BID PO 11/23/24 22:00 11/28/24 10:11 400 MG Clonidine HCl 0.1 mg Q6HP PRN PO 11/23/24 16:15 11/26/24 11:45 0.1 MG Lorazepam 1 mg Q5MINP PRN IV 11/23/24 23:15 Atorvastatin Calcium 20 mg HS PO 11/25/24 22:00 11/27/24 21:53 20 MG Lorazepam 1 mg ONCE PRN IV 11/25/24 21:30 Metoprolol Succinate 50 mg TID PO 11/26/24 14:00 11/28/24 14:46 50 MG Aspirin 81 mg DAILY PO 11/29/24 10:00 Ceftriaxone Sodium 50 ml @ 100 mls/hr DAILY@09 IV 11/29/24 09:00 Examination General Appearance: Alert, Oriented X3, Cooperative, No acute distress HEENT: Atraumatic, PERRLA, EOMI, Mucous membrane moist/pink Respiratory: Clear to auscultation, Normal air movement Cardiovascular: Regular rate, Normal S1, Normal S2, No murmurs, no chest wall tenderness Abdominal: Normal bowel sounds, Soft, No tenderness, No hepatosplenomegaly, No masses Extremities: No clubbing, No cyanosis, No edema, Normal pulses, No tenderness/swelling Skin: No rashes, No breakdown, No significant lesion Neuro: Normal gait, Normal speech, Strength at 5/5 X4 ext, Normal tone, Sensation intact, Cranial nerves 3-12 NL, Reflexes 2+ Psych/Mental Status: Mental status NL, Mood NL laboratory and microbiology Laboratory Tests 11/24/24 06:29 Test 11/24/24 06:29 Range/Units Serum Glucose 85 74-106 mg/dL Microbiology Date/Time Source Procedure Growth Status 11/23/24 18:30 Nose MRSA Screen - Final Complete Labs and/or images reviewed: Labs reviewed by me, Image(s) reviewed by me Problem List/Assessment/Plan Problem List/Assessment/Plan Assessment/plan # Questionable cerebritis as indicated per MRI without IV contrast # Dizziness # History of subdural hematoma/AVM # History of CVA Ceftriaxone Planned to have MRI head with IV contrast continue aspirin 81 mg Continue statins Continue Plavix Continue lamotrigine # Paroxysmal AFib status post pacemaker -continue metoprolol, dronedarone # History of coronary artery disease and CABG continue aspirin, ranolazine # Hypertension -continue metoprolol # Dyslipidemia continue statins # History of seizure -continue lamotrigine # Acute kidney injury on chronic kidney disease due to VMN -monitor BMP; avoid nephrotoxic agents # Anemia/mild; most likely inflammatory; no signs/symptoms of bleeding -monitor DVT prophylaxis SCDs Goals of care discussed with the patient for 20 minutes; Full code Case discussion with Dr. Kearns Plan discussed with: Patient, Spouse, Other (Nurse) My Orders My Orders Orders - JANNET ABBOTT Procedure Category Date Status Time Aspirin Tablet PHA 11/29/24 In Process 10:00 Ceftriaxone 1gm/50ml PHA 11/29/24 In Process D5w (Rocephin) 09:00 Dietary Evaluation Review Comments: 1) Continue cardiac diet 2) Encourage optimal PO intake 3) Follow-up with cardiology, neurology, and nephrology 4) Continue to monitor I&O, labs, and skin integrity Expected Outcomes/Goals: 1) appetite and labs to improve 2) f/u in 3-5 days Addendum Addendum Addendum I was physically present for the bear portions of the service provided to patient by THE RESIDENT. I have reviewed the documentation, discussed the case with resident and agree with the resident's documentation except as noted. Also the patient's clinical case was discussed with the patient's nurse. This medical document was created using an electronic medical record system with computerized dictation system. Although this document has been carefully reviewed, there might still be some phonetic and typographical errors. These areas are purely typographical due to imperfections of the software programs, and do not reflect any compromise in the patient's medical care. Late signature. Date of Service: Nov 28, 2024 Billing Provider: ABEL KEARNS MD Common Visit Codes: 86096-WHGOTUHPTO INP/OBS CARE(HIGH) Secondary Visit Codes: 19372-[id number] CARE PLAN 30 MINUTES (20 minutes) JANNET ABBOTT RESIDENT Nov 28, 2024 19:42 ABEL KEARNS MD Nov 29, 2024 08:48
[2024-11-29 01:00] VITALS: BP 154/99; PULSE 60; RESP 17; TEMP 98.1; O2SAT 99
[2024-11-29 05:37] VITALS: BP 158/83; PULSE 60; RESP 18; TEMP 98.1; O2SAT 98
[2024-11-29] MEDS: GADOTERATE MEG 10 MMOL/20ml INJ (0.5MMOL/ml) IV ONE (07:15)
--- NOTE | 2024-11-29 07:49 | DVHPN2 ---
Progress Note - Dictate Date Seen: Nov 29, 2024 Medical Necessity Reason Pt with a Central, PICC or Fol: No vital signs Vital Sign Date Time Temp Pulse Resp B/P (MAP) Pulse Ox O2 Delivery O2 Flow Rate FiO2 11/29/24 05:55 60 158/83 11/29/24 05:37 98.1 18 98 98.1 11/28/24 20:00 Room Air* 0 21 Total Intake and Output 11/28/24 11/28/24 11/29/24 15:00 23:00 07:00 Intake Total 120 ml 800 ml 800 ml Balance 120 ml 800 ml 800 ml medications Current Medications Medications Dose Ordered Sig/Iris Route Start Time Stop Time Status Last Admin Dose Admin Acetaminophen/ Hydrocodone Bitart 1 tab Q4HP PRN PO 11/23/24 15:15 11/25/24 23:51 1 TAB Ondansetron HCl 4 mg Q4HP PRN IV 11/23/24 15:15 11/26/24 11:45 4 MG Docusate Sodium 100 mg BIDPRN PRN PO 11/23/24 15:15 Acetaminophen 650 mg Q6HP PRN PO 11/23/24 15:15 Clopidogrel Bisulfate 75 mg DAILY PO 11/24/24 10:00 11/28/24 10:09 75 MG Ranolazine 500 mg BID PO 11/23/24 22:00 11/28/24 21:06 500 MG Pantoprazole Sodium 40 mg DAILY PO 11/24/24 10:00 11/28/24 10:11 40 MG Lamotrigine 400 mg BID PO 11/23/24 22:00 11/28/24 21:06 400 MG Dronedarone 400 mg BID PO 11/23/24 22:00 11/28/24 21:06 400 MG Clonidine HCl 0.1 mg Q6HP PRN PO 11/23/24 16:15 11/26/24 11:45 0.1 MG Lorazepam 1 mg Q5MINP PRN IV 11/23/24 23:15 Atorvastatin Calcium 20 mg HS PO 11/25/24 22:00 11/28/24 21:06 20 MG Lorazepam 1 mg ONCE PRN IV 11/25/24 21:30 Metoprolol Succinate 50 mg TID PO 11/26/24 14:00 11/29/24 05:55 50 MG Aspirin 81 mg DAILY PO 11/29/24 10:00 Ceftriaxone Sodium 50 ml @ 100 mls/hr DAILY@09 IV 11/29/24 09:00 laboratory and microbiology Laboratory Tests 11/24/24 06:29 Test 11/24/24 06:29 Range/Units Serum Glucose 85 74-106 mg/dL Assessment/Plan Patient is a 74-year-old gentleman who presented to the hospital with significant dizziness. He explains the dizziness as room spinning which was a lot and did not stop for few hours and he decided to come to the hospital. Denies any chest pain since yesterday. Is known to our practice from outside. Patient had a watchman device implanted in the middle of September 2024 ([facility] Does have history of atrial fibrillation/paroxysmal AFib. He has not been on anticoagulation for awhile (history of SAH and brain AVM). He also has a [employer] pacemaker (last interrogated in early September 2024). Patient has had occasional chest discomforts (atypical). Cardiology is involved for cardiac aspects of care. Not in acute distress. Sitting in bed. No JVD. Mucosa is pink and wet. No carotid bruit. No goiter. Not using accessory muscles of breathing. Lungs are clear to auscultation. Cardiac: Regular, no thrill/gallop. Systolic murmur 2/6 in the apex is heard. Abdomen is soft. There is no gross mass/hepatomegaly. Extremities do not reveal edema. Dorsalis pedis is 2+ bilateral. 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 He did have Watchman device implanted in the middle of September 2024 (previously the Watchman could not be implanted in other facility). Nuclear stress test (performed in the office) of December 2022 revealed normal perfusion, ejection fraction of 64%. Echocardiogram of December 2022 (performed in the office) revealed ejection fraction of 60-65%, mild concentric left ventricular hypertrophy, moderate left atrial enlargement, mild right atrial enlargement, [id number] tricuspid regurgitation, trace AI/PI/MR and aortic root of 4 cm Echocardiogram (performed in [facility]) of August 2024 revealed mild concentric left ventricular hypertrophy, ejection fraction of 70%, grade 1 diastolic dysfunction, borderline right ventricular hypertrophy, severe left atrial enlargement and right ventricular systolic pressure of 37 mm Hg Creatinine: 1.53 - 1.26 Potassium: 4.1 - 4.3 Lactic acid: 1.2 BNP: 433.54 Troponin (high sensitive): 4 - 4 - 3 Chest x-ray revealed: IMPRESSION: 1. Bibasilar atelectasis MRI of brain revealed: IMPRESSION: Sulcal effacement of the left posterior parietal and occipital lobe could be cerebritis. Venous duplex of right upper ext revealed: No sonographic evidence of right upper extremity deep venous thrombosis. There is incompressibility off the right antecubital vein consistent with superficial vein thrombosis. EKG was poor quality. Repeat EKG revealed paced A and sensed V: non specific ST T changes Echocardiogram revealed: Left ventricle: Mild concentric left ventricular hypertrophy was seen. LVEF was around 60%. There was no gross wall motion abnormality. Abnormal relaxation of left ventricular diastolic function was seen. Right ventricle was mildly dilated with normal systolic function. Both atria were mildly dilated. Aortic valve was trileaflet. There was trace aortic insufficiency. There was no aortic stenosis. There was trace mitral and tricuspid regurgitation. There was trace pulmonary valve insufficiency. Right ventricular systolic pressure was assessed at 36 mm Hg. There was no pericardial effusion. Aortic root was mildly dilated at 4.1 cm. [facility]: Battery voltage: 2.99 volts; Remaining battery capacity to XANDER: 78%; DDDR: 60/130; Capture threshold: A 0.75 volts@0.8 milliseconds/V1.0 volts@0.4 milliseconds; Lead impedance: A410/V510 Ohms; A pacing: >99%; V pacin.1%; AT/AF burden: 0%; Normal functioning pacemaker which is MRI conditional Patient is 74-year-old man who presented with vertigo and dizziness which lasted half a day prior to presentation. There has been no chest pain on the day of presentation. Presentation is not considered cardiac. Patient does have history of old CVA and brain AVM. Does have history of atrial fibrillation. Has not been on anticoagulation for repeated previous bleedings and significant AVM and also SAH. It is of note the patient did have Watchman device couple of months back. PM interrogation revealed normal functioning PM and also no episodes of AT/AF. Still feels occasional dizziness. MRI of brain questions cerebritis. Neurology wants MRI of brain with contrast. Vertigo Dizziness Coronary artery disease, status post CABG Status post pacemaker ([employer]) implantation Paroxysmal AFib Old history of CVA Hypertension Hyperlipidemia Seizure disorder Valvular heart disease JONY on CKD GERD Tremors Cerebritis as per MRI Cardiac suggestion for management: Manage on telemetry Follow-up electrolytes and kidney function tests and correct abnormalities Continue aspirin/Plavix Neurology follow-up Brain imaging as per Neurology Further evaluation and management depends on the above and clinical course A total of 55 minutes was spent reviewing the patient record, examining the patient, making a diagnostic and therapeutic plan, discussing this plan with medical personnel, following up on diagnostic studies and following the patient for clinical stability excluding any and all procedures. At least 50% of this time was spent in direct, [id number] contact. Thank you for allowing me to participate in this patient's care. Further recommendations will depend on patient's clinical course. Please do not hesitate to contact me if you have any questions or concerns. This medical document was created using electronic medical record system with [employer] computerized dictation system. Although this document has been carefully reviewed, there may still be some phonetic and typographical errors. These areas are purely typographical due to the imperfection of the software programs, and do not reflect any compromise in the patient's medical care. Dietary Evaluation Review Comments: 1) Continue cardiac diet 2) Encourage optimal PO intake 3) Follow-up with cardiology, neurology, and nephrology 4) Continue to monitor I&O, labs, and skin integrity Expected Outcomes/Goals: 1) appetite and labs to improve 2) f/u in 3-5 days Plan discussed with: Patient, Other (nurse) LEXY LINDER MD Nov 29, 2024 07:49
[2024-11-29 08:00] VITALS: PULSE 60; PULSE 63; RESP 17; O2SAT 98
[2024-11-29 09:00] VITALS: BP 119/84; PULSE 60; RESP 17; TEMP 98; O2SAT 97
--- NOTE | 2024-11-29 10:05 | DVH ---
EXAM: MRI BRAIN HEAD WO W CONTRAST CLINICAL HISTORY: MRI brain COMPARISON: MRI BRAIN HEAD WO CONTRAST on DOS: 11/25/24 TECHNIQUE: Multiplanar, multisequence magnetic resonance imaging of the brain was performed after the administra tion of intravenous contrast. FINDINGS: No evidence of acute or remote infarct. No intracranial hemorrhage. No mass effect. There is periventricular/deep white matter T2/FLAIR hyperintensity which is nonspecific, but most com monly associated with chronic microvascular disease. The ventricles and sulci are normal in size for age. Flow voids in the major intracranial vessels are maintained. No abnormality of the orbits. Paranasal sinuses and mastoid air cells are clear. No abnormality of the visualized osseous structures and extracranial soft tissues. No evidence of abnormal enhancement after the administration of intravenous contrast. IMPRESSION: No acute infarct, intracranial hemorrhage, mass effect, or hydrocephalus.
[2024-11-29] MEDS: cefTRIAXone 1GM/50ML D5W 50 ML IV SCH (10:14)
--- NOTE | 2024-11-29 10:53 | DVHPN2 ---
Progress Note - Dictate Date Seen: Nov 29, 2024 Medical Necessity Reason Pt with a Central, PICC or Fol: No Subjective Mr. Engle is a 74 years old gentleman with a history of hypertension, dyslipidemia, atrial fibrillation status post Watchman procedure, coronary artery disease, SAH, tremor, seizure, he came to the [facility] on 11/23/2024 with a chief company of dizziness. I have seen and examined the patient, I have talked to his nurse, primary care team, the patient is doing fine, alert and fully oriented, no new complaints Reports from my office CT head, 05/22/16: 1. Loss of the normal darby-white matter differentiation in the right frontal lobe, left posterior parietal lobe and left occipital lobe with thickening of the cortical margin and underlying edema causing effacement of the sulci. MR head, 12/2019: Small SAH H over left parietal lobe MRI head, 12/29/19: 1. Small subarachnoid blood products suspected over the left parietal cortex posteriorly and possibly the right central sulcus MR brain 12/28/2021: Small SAH CT head, 08/18/2022: SAH of left parietal lobe CT head, comparison: 08/16/2022. 10/20/2022: Essentially unchanged, laminar hyperattenuation in the left parietal lobe similar to most recent prior exam with fullness of the left parietal lobe sulci and hypoattenuation, most likely representing dystrophic calcifications or cortical laminar necrosis sequelae of prior cerebral infarct MRI head, 08/22/22: Up to 4.2 cm localized area of increased FLAIR signal in right superior frontoparietal lobe centrum semiovale likely due to chronic ischemia infarct. MRI head w 11/29/24: No acute infarct, intracranial hemorrhage, mass effect, or hydrocephalus. (No evidence of abnormal enhancement after the administration of intravenous contrast.) CTA head, neck, 08/17/2022: Possible vascular malformation Urinalysis, 11/20/2024: Unremarkable CBC, 07/24/24: Unremarkable BUN/CR, 11/23/2024: 20/1.53 GFR, : 47 CT head, 05/22/2016: 1. Loss of the normal darby-white matter differentiation in the right frontal lobe, left posterior parietal lobe and left occipital lobe with thickening of the cortical margin and underlying edema causing effacement of the sulci. The appearance is highly concerning for a underlying malignancy with vasogenic edema. Ischemia is felt to be unlikely given the appearance and distribution. There is no associated mass effect or midline shift. Recommend obtaining MRI with gadolinium for further characterization. 2. No acute areas of intracranial hemorrhage or obvious acute territorial infarct. 3. Age related atrophy and small vessel ischemic change MR head, 11/25/2024: Sulcal effacement of the left posterior parietal and occipital lobe could be cerebritis. vital signs Vital Sign Date Time Temp Pulse Resp B/P (MAP) Pulse Ox O2 Delivery O2 Flow Rate FiO2 11/29/24 09:00 98.0 60 17 119/84 (96) 97 98.0 11/29/24 08:00 Room Air* 0 21 Total Intake and Output 11/28/24 11/28/24 11/29/24 15:00 23:00 07:00 Intake Total 120 ml 800 ml 800 ml Balance 120 ml 800 ml 800 ml medications Current Medications Medications Dose Ordered Sig/Iris Route Start Time Stop Time Status Last Admin Dose Admin Acetaminophen/ Hydrocodone Bitart 1 tab Q4HP PRN PO 11/23/24 15:15 11/25/24 23:51 1 TAB Ondansetron HCl 4 mg Q4HP PRN IV 11/23/24 15:15 11/26/24 11:45 4 MG Docusate Sodium 100 mg BIDPRN PRN PO 11/23/24 15:15 Acetaminophen 650 mg Q6HP PRN PO 11/23/24 15:15 Clopidogrel Bisulfate 75 mg DAILY PO 11/24/24 10:00 11/29/24 10:15 75 MG Ranolazine 500 mg BID PO 11/23/24 22:00 11/29/24 10:15 500 MG Pantoprazole Sodium 40 mg DAILY PO 11/24/24 10:00 11/29/24 10:15 40 MG Lamotrigine 400 mg BID PO 11/23/24 22:00 11/28/24 21:06 400 MG Dronedarone 400 mg BID PO 11/23/24 22:00 11/29/24 10:15 400 MG Clonidine HCl 0.1 mg Q6HP PRN PO 11/23/24 16:15 11/26/24 11:45 0.1 MG Lorazepam 1 mg Q5MINP PRN IV 11/23/24 23:15 Atorvastatin Calcium 20 mg HS PO 11/25/24 22:00 11/28/24 21:06 20 MG Lorazepam 1 mg ONCE PRN IV 11/25/24 21:30 Metoprolol Succinate 50 mg TID PO 11/26/24 14:00 11/29/24 05:55 50 MG Aspirin 81 mg DAILY PO 11/29/24 10:00 11/29/24 10:14 81 MG Ceftriaxone Sodium 50 ml @ 100 mls/hr DAILY@09 IV 11/29/24 09:00 11/29/24 10:14 100 MLS/HR objective General: the patient is well developed and nourished. No acute distress. MENTAL STATUS: Subjective SPEECH, LANGUAGE, HIGHER CORTICAL FUNCTION: no aphasia or dysathria. CRANIAL NERVES: Pupils are equal, round and reactive. EOMs full and conjugate. No nystagmus. Facial sensation intact in all three divisions bilaterally. Mandibular strength intact. Facial muscles symmetrical and strength intact. SENSATION: Sensation to touch and pinprick is normal. MOTOR: Normal tone in the upper and lower extremity. Normal muscle bulk. No fasciculations. Postural tremor in both upper extremities. Muscle strength of the major groups in the extremities is 5/5. REFLEXES: Deep tendon reflexes are symmetrical. No pathological reflexes. CEREBELLAR/COORDINATION: Finger to nose is normal bilaterally. GAIT/STATION: Mildly unsteady laboratory and microbiology Laboratory Tests 11/24/24 06:29 Test 11/24/24 06:29 Range/Units Serum Glucose 85 74-106 mg/dL Problem List Dizziness, Likely benign paroxysmal positional vertigo, Rule out other etiology Chronic stroke Recurrent subarachnoid hemorrhage Atrial fibrillation, status post Watchman procedure Atrial fibrillation status post pacemaker insertion (2023) Reported grand mal seizure (on 11/26/2024, he said see diagnosis of seizure was not confirmed by his [facility] neurologist) Essential tremors Brain edema to rule out Cerebritis (per MRI) Assessment/Plan Monitoring Supportive treatment Telemetry Lamotrigine 400 mg Bid Aspirin 81 mg daily, Plavix 75 mg daily, Lipitor 20 mg daily Ativan for seizure breakthrough Further address his essential tremor as outpatient More recommendation per clinical course I advised him to follow up with a neurologist in a teaching hospital Okay to discharge from a neurologic point of view This medical document was created using an electronic medical record system with [employer] dictation system. Although this document has been carefully reviewed, there may still be some phonetic and typographical errors. These areas are purely typographical due to imperfections of the software programs, and do not reflect any compromise in the patient's medical care. Prognosis poor Dietary Evaluation Review Comments: 1) Continue cardiac diet 2) Encourage optimal PO intake 3) Follow-up with cardiology, neurology, and nephrology 4) Continue to monitor I&O, labs, and skin integrity Expected Outcomes/Goals: 1) appetite and labs to improve 2) f/u in 3-5 days Plan discussed with: Patient, Other MICHAEL CHAPARRO MD Nov 29, 2024 10:53
[2024-11-29 11:42] VITALS: BP_SYST 121; BP_SYST 146; BP_SYST 158; BP_DIAS 87; BP_DIAS 91; BP_DIAS 99; PULSE 68; PULSE 73
[2024-11-29 12:26] VITALS: BP 158/83; PULSE 60; TEMP 36.7
--- NOTE | 2024-11-29 18:54 | DVHDSRES ---
Discharge Summary Date of Admission Resident Creating Document: JANNET ABBOTT RESIDENT Nov 23, 2024 at 15:02 Date of Discharge: Nov 29, 2024 Admitting Diagnosis Dizziness Labs/Diagnostic Data: Laboratory Results Test 11/24/24 06:29 11/23/24 15:28 11/23/24 11:46 11/23/24 11:37 White Blood Count 7.1 10^3/uL (4.4-10.8) Red Blood Count 4.31 10^6/uL (4.5-5.90) Hemoglobin 12.8 g/dL (13.5-17.5) Hematocrit 36.8 % (41.0-53.0) Mean Corpuscular Volume 85.4 fL (80.0-100.0) Mean Corpuscular Hemoglobin 29.7 pg (28.0-32.0) Mean Corpuscular Hemoglobin Concent 34.8 g/dL (32.0-36.0) Red Cell Distribution Width 13.4 % (11.8-14.3) Platelet Count 210 10^3/uL (140-450) Mean Platelet Volume 6.8 fL (6.9-10.8) Neutrophils (%) (Auto) 59.4 % (37.0-80.0) Lymphocytes (%) (Auto) 23.6 % (10.0-50.0) Monocytes (%) (Auto) 10.9 % (0.0-12.0) Eosinophils (%) (Auto) 5.3 % (0.0-7.0) Basophils (%) (Auto) 0.8 % (0.0-2.0) Neutrophils # (Auto) 4.2 10 ^3/uL (1.6-8.6) Lymphocytes # (Auto) 1.7 10 ^3/uL (0.4-5.4) Monocytes # (Auto) 0.8 10 ^3/uL (0-1.3) Eosinophils # (Auto) 0.4 10 ^3/uL (0-0.8) Basophils # (Auto) 0.1 10 ^3/uL (0-0.2) Nucleated Red Blood Cells 0.1 % Sodium Level 139 mmol/L (136-145) Potassium Level 4.3 mmol/L (3.5-5.1) Chloride Level 107 mmol/L (98-107) Carbon Dioxide Level 24 mmol/L (20-31) Anion Gap 8 (5-15) Blood Urea Nitrogen 15 mg/dL (9-23) Creatinine 1.26 mg/dL (0.700-1.30) Glomerular Filtration Rate Calc 59 mL/min (>90) BUN/Creatinine Ratio 11.9 (10.0-20.0) Serum Glucose 85 mg/dL (74-106) Calcium Level 9.3 mg/dL (8.7-10.4) Total Bilirubin 0.6 mg/dL (0.2-1.0) Aspartate Amino Transferase (AST) 13 U/L (13-40) Alanine Aminotransferase (ALT) < 9 U/L (7-40) Alkaline Phosphatase 83 U/L (46-116) Total Protein 6.4 g/dL (5.7-8.2) Albumin 4.1 g/dL (3.2-4.8) Troponin I High Sensitivity 3 ng/L (</=54) Urine Color Yellow (Yellow) Urine Clarity Clear (Clear) Urine pH 6.5 (5.0-9.0) Urine Specific [place] 1.021 (1.001-1.035) Urine Protein Trace (Negative) Urine Ketones Negative (Negative) Urine Blood Negative /uL (Negative) Urine Nitrite Negative (Negative) Urine Bilirubin Negative (Negative) Urine Urobilinogen Normal mg/dL (Negative) Urine Leukocyte Esterase Negative /uL (Negative) Urine RBC 1 /hpf (0 - 3) Urine Microscopic WBC 1 /HPF (0-3) Urine Squamous Epithelial Cells None seen /hpf (<5) Urine Bacteria None seen /hpf (None Seen) Urine Glucose Normal mg/dL (Normal) Lactic Acid Level 1.2 mmol/L (0.4-2.0) B-Type Natriuretic Peptide 433.54 pg/mL (0-100) Other Laboratory Tests 11/24/24 06:29 Brief Hx & Hospital Course: A 74-year-old male with past medical history of hypertension, dyslipidemia, paroxysmal AFib status post Watchman procedure and pacemaker placement, coronary artery disease, subarachnoid hemorrhage, questionable seizures, questionable tremors presented with complaints of dizziness. Patient mentioned that he has been following up with neurologist for last two years and going to [place] for workup for dizziness but not has a final diagnosis yet. Patient mentioned that his symptoms worse when he stands up from sitting position or changes his posterior. Winslow Hallpike maneuver was negative in the hospital. Neurology was consulted. Patient had initial MRI without contrast done in the hospital that showed possible cerebritis which was followed by an MRI with contrast which did not show any acute abnormalities. Patient Was started on his home medications . Cardiology was also consulted for the workup of dizziness. Pacemaker was evaluated and was normal functioning. Echocardiogram was done. Patient later mentioning improvement in his symptoms. At the time of discharge, patient is stable vitals, no new complaints. Discharge plan was discussed with the patient patient advised to follow up with PCP and mutton puncher within 1-2 weeks and neurologist within 1-2 weeks. Physical exam of the day of the discharge Examination General Appearance: Alert, Oriented X3, Cooperative, No acute distress HEENT: EOMI Respiratory: Clear to auscultation, Normal air movement Cardiovascular: Regular rate, Normal S1, Normal S2 Abdominal: Normal bowel sounds Extremities: No cyanosis, No edema, Normal pulses, No tenderness/swelling Skin: No rashes, No breakdown Neuro: Normal gait, Normal speech, Strength at 5/5 X4 ext, Normal tone, Sensation intact, Cranial nerves 3-12 NL, Reflexes 2+ Psych/Mental Status: Mental status NL, Mood NL Discussed with Dr. Kearns Consults/Reason for consult Neurology for dizziness Condition at Discharge: Stable Final Diagnosis/Problems List # Dizziness; most likely due to orthostatic changes # History of subdural hematoma/AVM # History of CVA # Paroxysmal AFib status post pacemaker # History of coronary artery disease and CABG # Hypertension # Dyslipidemia # History of seizure # Acute kidney injury on chronic kidney disease due to VMN # Anemia/mild; most likely inflammatory Discharge Disposition: Home Discharge Instruct/Medications Diet: Cardiac 2g Na,low cholest Activity: No Restrictions, As Tolerated Follow Up/Referral: f/u With PCP within 1 week f/u with Neurology and cardiology Medications: Continue home medication Scheduled Amlodipine Besylate (Amlodipine Besylate), 10 MG PO DAILY, (Reported) Aspirin (Aspirin Low Dose), 81 MG PO DAILY, (Reported) Atorvastatin Calcium (Atorvastatin Calcium), 20 MG PO DAILY, (Reported) Clonidine Hydrochloride (Clonidine Hcl), 1 TAB PO TID, (Reported) Clopidogrel Bisulfate (Plavix), 75 MG PO DAILY, (Reported) Cyanocobalamin (B12), 1,000 MCG PO DAILY, (Reported) Dronedarone Hydrochloride (Multaq), 200 MG PO BID, (Reported) Lamotrigine (Lamotrigine), 400 MG PO BID, (Reported) Metoprolol Succinate (Metoprolol Succinate Er), 1 TAB PO TID, (Reported) Omeprazole Magnesium (Omeprazole), 20 MG PO DAILY, (Reported) Pantoprazole Sodium (Pantoprazole Sodium), 40 MG PO DAILY@BREAKFAST, (Reported) Ranolazine (Ranolazine ER), 500 MG PO BID, (Reported) Tramadol HCl (Tramadol HCl), 50 MG PO DAILY, (Reported) Discontinued Medications Lamotrigine (Lamotrigine), 200 MG PO BID, (Reported) Lisinopril (Lisinopril), 20 MG PO BID, (Reported) Metoprolol Tartrate (Metoprolol Tartrate), 100 MG PO BID, (Reported) Discharge Statement: "Patient was advised to return to the ER or call 911 if any headaches, dizziness, shortness of breath, chest pain, abdominal pain, bleeding, fevers, or worsening of medical condition. Patient was counseled about treatment plan, medications, possible side effects, patientverbalized understanding. All questions were answered to the best of my ability. This discharge took greater then 30 minutes in planning, reviewing documentation, counseling the patient, and discussing with other team members." ASSESSMENT ASSESSMENT Assessment Dizziness Addendum Addendum Addendum I was physically present for the bear portions of the service provided to patient by THE RESIDENT. I have reviewed the documentation, discussed the case with resident and agree with the resident's documentation except as noted. Also the patient's clinical case was discussed with the patient's nurse. This medical document was created using an electronic medical record system with computerized dictation system. Although this document has been carefully reviewed, there might still be some phonetic and typographical errors. These areas are purely typographical due to imperfections of the software programs, and do not reflect any compromise in the patient's medical care. Late signature. Date of Service: Nov 29, 2024 Billing Provider: ABEL KEARNS MD Common Visit Codes: 35336-REB/OBS DISCH DAY >30min JANNET ABBOTT RESIDENT Nov 29, 2024 18:54 ABEL KEARNS MD Nov 30, 2024 21:28
== END 2024-11-29 14:20 | disposition home or self-care (01) | DRG 149 ==
LOC: ER 10:49 → OVERFLOW 15:02 → TELE-CENTR 15:05 → CENTRAL 16:27 → TELE-CENTR 11-25 13:42
PROVIDERS: ADMIT Internal Medicine; ATTEND Internal Medicine
PROC: 4B02XSZ Measurement of Cardiac Pacemaker, External Approach (ICD-10-PCS; principal; 2024-11-26)
DX: R42 Dizziness and giddiness (principal); N17.0 Acute kidney failure with tubular necrosis; G40.409 Other generalized epilepsy and epileptic syndromes, not intractable, without status epilepticus; E78.5 Hyperlipidemia, unspecified; G25.0 Essential tremor; I12.9 Hypertensive chronic kidney disease with stage 1 through stage 4 chronic kidney disease, or unspecified chronic kidney disease; I48.0 Paroxysmal atrial fibrillation; N18.9 Chronic kidney disease, unspecified; K21.9 Gastro-esophageal reflux disease without esophagitis; R26.81 Unsteadiness on feet; G90.89 Other disorders of autonomic nervous system; D63.8 Anemia in other chronic diseases classified elsewhere; I80.9 Phlebitis and thrombophlebitis of unspecified site; I25.10 Atherosclerotic heart disease of native coronary artery without angina pectoris; Z86.73 Personal history of transient ischemic attack (TIA), and cerebral infarction without residual deficits; Z95.1 Presence of aortocoronary bypass graft; Z95.0 Presence of cardiac pacemaker; Z79.82 Long term (current) use of aspirin; Z79.899 Other long term (current) drug therapy; Z90.49 Acquired absence of other specified parts of digestive tract; Z82.49 Family history of ischemic heart disease and other diseases of the circulatory system; Z82.3 Family history of stroke; Z83.3 Family history of diabetes mellitus; Z87.891 Personal history of nicotine dependence; Z91.81 History of falling
CPT/HCPCS: 36415; 70551; 70553; 71045; 80053; 81001; 83605; 83880; 84484; 85025; 87081; 93005; 93306; 93971; 96360; 97110; 97116; 97163; 97530; G0378; J2405